=== PATIENT | female | born 1940 | race Caucasian/White ===

== ENCOUNTER 2016-07-03 15:54 | Inpatient (IN) ==
[2016-07-03 17:49] LABS: MANUAL DIFF NEEDED? NO
--- NOTE | 2016-07-03 17:57 | Diag Imaging Result Document ---
PROCEDURE NAME: CHEST-2 VIEWS - 07/03/2016 FRONTAL AND LATERAL CHEST, TWO VIEWS: COMPARISON: 11/26/2014. FINDINGS: The lungs are well expanded. The heart is not enlarged. The vessels are not distended. No pneumonia. No pleural effusions. There are bilateral breast implants. No free air beneath the diaphragm. IMPRESSION: No acute abnormality.
[2016-07-03 17:58] LABS: BASO% 0.1 % (0.0-0.8); EOS# 0.07 X1000 (0.0-0.7); EOS% 0.9 % (0.0-10.0); HEMATOCRIT 36.1 % (37.0-47.0); HEMOGLOBIN 12.5 g/dL (12.0-16.0); IMM GRAN# 0.02 X1000 (0.0-0.04); IMM GRAN% 0.3 % (0.0-0.5); LYMPH# 1.02 X1000 (1.2-3.4); LYMPH% 13.8 % (20.5-51.1); MCH 33.1 PG (27-31); MCHC 34.6 g/dL (33-37); MCV 95.5 FL (81-99); MONO% 10.8 % (1.7-9.3); NEUT% 74.1 % (42.2-75.2); PLT 208 X1000 (130-400); RBC 3.78 XMIL (4.2-5.4)
[2016-07-03 18:02] LABS: INR 0.94; PROTIME 9.8 Seconds (9.2-11.7); PTT 25.1 Seconds (22.0-36.0)
[2016-07-03] MEDS ORDERED: NITROGLYCERIN SL ONE (18:43)
[2016-07-03] MEDS ORDERED: ASPIRIN PO ONE (18:44)
[2016-07-03] MEDS ORDERED: NS 1,000 ML IV ONE (18:45)
[2016-07-03 18:46] LABS: ALBUMIN 4.4 g/dL (3.5-5.0); CALCIUM 10.4 mg/dL (8.8-10.2); MAGNESIUM 2.2 mg/dL (1.5-2.7); POTASSIUM 3.4 mmol/L (3.5-5.1); TOTAL BILIRUBIN 0.24 mg/dL (0.20-1.00); TOTAL PROTEIN 7.5 g/dL (6.3-8.3)
--- NOTE | 2016-07-03 18:46 | PROVIDER DOCUMENTATION ---
HPI-Chest Pain - General Chief Complaint: Chest Pain Stated Complaint: cp Time Seen by Provider: 07/03/16 18:30 Source: patient Allergies/Adverse Reactions: Patient Allergies Allergy/AdvReac Type Severity Reaction Status Date / Time morphine Allergy Severe "MAKES ME Verified 07/03/16 18:40 CRAZY" Sulfa (Sulfonamide AdvReac Severe VOMIT AND Verified 07/03/16 18:40 Antibiotics) DIARRHEA Home Medications: Home Medication List Medication Instructions Recorded Confirmed Last Taken Type Clonidine [Catapres] 0.2 mg PO BID 07/03/16 07/03/16 07/03/16 History Lorazepam 0.5 mg PO DAILY 07/03/16 07/03/16 07/03/16 History Metoprolol [Lopressor] 50 mg PO BID 07/03/16 07/03/16 07/03/16 History PRAVAstatin [Pravachol] 80 mg PO DAILY 07/03/16 07/03/16 07/03/16 History Spironolactone 25 mg PO BID 07/03/16 07/03/16 07/03/16 History Losartan [Cozaar] 100 mg PO DAILY #30 tablet 07/06/16 Unknown Rx Omeprazole [Prilosec] 40 mg PO BID #60 capsule. 07/06/16 Unknown Rx Sucralfate [Carafate Liquid] 1 gm PO Q6HR #56 udc 07/06/16 Unknown Rx - History of Present Illness-CP Nature of Presenting Problem: 76 yof c/o epigastric pain radiating to her shoulder blades. Location: reports: epigastric Chest Pain Radiation: reports: back Quality of Pain: reports: aching, pressure Severity in ED: moderate Onset/Duration: 4-6 hours ago Timing: still present Context/Activities at Onset: reports: none Modifying Factors: improves with: nothing Nitro Today/Relief: no nitro taken today Aspirin Treatment Today: provided by ED Prior Chest Pain/Cardiac Workup: reports: no prior chest pain Similar Symptoms Previously?: No Recently Seen Here or By Another Healthcare Provider: No Review of Systems - Adult - REVIEW OF SYSTEMS - ADULT Constitutional: reports: see HPI Eyes: reports: no symptoms reported Ears, Nose, Mouth & Throat: reports: no symptoms reported Cardiovascular: reports: see HPI, chest pain Respiratory: reports: no symptoms reported Gastrointestinal: reports: no symptoms reported Genitourinary: reports: no symptoms reported Musculoskeletal: reports: no symptoms reported Integumentary: reports: no symptoms reported Neurological: reports: no symptoms reported All Other Systems: Reviewed and Negative Past History - Adult - PAST MEDICAL HISTORY-ADULT Review of Records: reports: Old Records Reviewed, Nursing Assessment Review, Medications Reviewed, Social history reviewed & non-contributory. 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) Other Conditions: reports: MRSA - PRIOR SURGERIES/PROCEDURES Surgical/Procedure History: reports: colonoscopy, indwelling device, bowel surgery, breast - IMMUNIZATION STATUS Childhood Immunizations: See Nurse Assessment Flu Vaccine: See Nurse Assessment Physical Exam-General - PHYSICAL EXAM-ADULT Initial Vital Signs Reviewed: Yes - CONSTITUTIONAL General Appearance: appears well, alert, no apparent distress - EYES Eyes: PERRL/EOMI, pink conjunctivae - HEAD, EARS, NOSE, MOUTH & THROAT HENMT: normocephalic/atraumatic, moist mucous membranes, normal ENT inspection - NECK Neck: non-tender, full range of motion, supple - RESPIRATORY Respiratory: chest non-tender, lungs clear, normal breath sounds, no pleuratic chest pain, no respiratory distress - CARDIOVASCULAR Cardiovascular: normal peripheral pulses, regular rate, rhythm, no edema, no gallop, no JVD, no murmur - GASTROINTESTINAL (ABDOMEN) Abdominal Exam: normal bowel sounds, non tender, soft, no organomegaly, no pulsatile mass - LYMPHATIC Lymphatic: no adenopathy - MUSCULOSKELETAL Back Exam: normal inspection, no CVA tenderness, no vertebral tenderness Extremity: normal range of motion, non-tender, normal gait, normal inspection, no pedal edema, no calf tenderness, normal capillary refill, pelvis stable - SKIN Integumentary: normal color, normal turgor, warm/dry - NEUROLOGIC Neurologic: grossly normal - PSYCHIATRIC Psych/Mental Status: oriented x 3 Progress - PLAN OF CARE/RESULTS Progress/Plan/Lab Results: Orders Category Date Time Status Admit - [facility] Routine AdmDCTranf 07/03/16 22:32 Ordered Cardiac Monitoring DIRECTED Care 07/03/16 17:00 Completed Notify MD if DIRECTED Care 07/03/16 22:32 Active Nursing- MD Consult Request ROUTINE Care 07/03/16 22:32 Completed Nursing- MD Consult Request ROUTINE Care 07/03/16 22:32 Completed Saline Loc DIRECTED Care 07/03/16 22:32 Active Saline Loc NOW Care 07/03/16 17:00 Completed Vital Signs Order Q 4-HR ASSESS Care 07/03/16 22:32 Completed Physician/Provider Consults Routine Cons 07/03/16 22:32 Ordered Physician/Provider Consults Routine Cons 07/03/16 22:32 Ordered Heart Healthy Diet Diet 07/03/16 21:45 Completed NPO Diet 07/04/16 00:01 Completed CHEST-2 VIEWS [RAD] Stat Exams 07/03/16 17:00 Completed BASIC METABOLIC PANEL [CHEM] Q6H Lab 07/03/16 23:00 Completed BASIC METABOLIC PANEL [CHEM] Q6H Lab 07/04/16 05:15 Completed BASIC METABOLIC PANEL [CHEM] Q6H Lab 07/04/16 10:05 Completed C DIFF TOXIN [STOOL] Stat Lab 07/04/16 03:35 Completed CBC WITH ELECTRONIC DIFF [HEME] Stat Lab 07/03/16 17:25 Completed CK PROFILE [SP CHEM] Stat Lab 07/03/16 17:25 Completed CK PROFILE [SP CHEM] Stat Lab 07/03/16 20:30 Completed COMPREHENSIVE METABOLIC PANEL [CHEM] Stat Lab 07/03/16 17:25 Completed D-DIMER [CHEM] Stat Lab 07/03/16 17:25 Completed ELECTROLYTES STOOL [PADILLA] Stat Lab 07/04/16 03:35 Completed LACTOFERRIN STOOL [PADILLA] Stat Lab 07/04/16 03:35 Completed LIPID PROFILE W/CALC LDL [LIPIDS] Routine Lab 07/04/16 05:15 Completed MAGNESIUM [CHEM] Stat Lab 07/03/16 17:25 Completed MAGNESIUM [CHEM] Stat Lab 07/03/16 23:00 Completed PRO B-NATRIURETIC PEPTIDE Stat Lab 07/03/16 17:25 Completed PROTIME WITH INR [COAG] Stat Lab 07/03/16 17:25 Completed PTT [COAG] Stat Lab 07/03/16 17:25 Completed TROPONIN T Q6H Lab 07/03/16 23:00 Completed TROPONIN T Q6H Lab 07/04/16 05:15 Completed TROPONIN T Stat Lab 07/03/16 17:25 Completed TROPONIN T Stat Lab 07/03/16 20:30 Completed TSH Stat Lab 07/03/16 20:30 Completed UR OSMOLALITY [CHEM] Stat Lab 07/03/16 21:30 Completed UR SODIUM [URCHEM] Stat Lab 07/03/16 21:30 Completed URIC ACID [CHEM] Stat Lab 07/03/16 20:30 Completed WBC STOOL [STOOL] Stat Lab 07/04/16 03:35 Completed 0.9% Sodium Chloride Inj [Ns] 1,000 ml Med 07/03/16 18:45 Discontinued IV 100 mls/hr Acetaminophen [Tylenol] Med 07/03/16 22:32 Discontinued 650 mg PO Q6H PRN PRN Aspirin Med 07/04/16 09:00 Discontinued 325 mg PO DAILY Aspirin Med 07/03/16 18:44 Discontinued 325 mg PO NOW ONE Cholestyramine/Aspartame [Questran Light] Med 07/04/16 09:00 Discontinued 4 gm PO BID Clonidine [Catapres] Med 07/03/16 22:32 Discontinued 0.2 mg PO BID Enoxaparin [Lovenox] Med 07/03/16 22:32 Discontinued 40 mg SUBQ Q24H Lorazepam [Ativan] Med 07/04/16 09:00 Discontinued 0.5 mg PO DAILY Metoprolol [Lopressor] Med 07/03/16 22:32 Discontinued 50 mg PO BID Nitroglycerin Sl [Nitroglycerin] Med 07/03/16 18:43 Discontinued 0.4 mg SL NOW ONE Ns + KCl 20 Meq 1,000 ml Med 07/03/16 22:32 Discontinued IV 125 mls/hr Omeprazole [Prilosec] Med 07/04/16 07:00 Discontinued 20 mg PO DAILY@0700 Ondansetron [Zofran] Med 07/03/16 22:32 Discontinued 4 mg IV Q4H PRN PRN PRAVAstatin [Pravachol] Med 07/04/16 09:00 Discontinued 80 mg PO DAILY Oxygen Device Routine Oth 07/03/16 22:32 Completed EKG [EKG] Routine Ther 07/03/16 22:32 Completed Echo Spec/Color Dop W/O Contra Routine Ther 07/03/16 22:32 Completed Transfer/Admit Order [TRANSFER] Routine Transfer 07/03/16 20:36 Completed Result Diagrams: 07/06/16 05:33 07/06/16 05:33 Departure - Departure Time of Disposition Decision: 21:30 DIAGNOSIS: Chest pain Qualifiers: Chest pain type: unspecified Qualified Code(s): R07.9 - Chest pain, unspecified Disposition: ADMITTED INPATIENT 09 Certified Medical Emergency: Emergent Condition: Stable - Critical Care Note This patient required my direct & personal management of CC.: No Attestation - Physician/ BARB Attestation Patient care was provided by Advanced Practice Provider:: Yes Advanced Practice Provider:: Erich Francis Advanced Practice Provider documentation review:: The Mid-level provider documentation, treatment plan and medical decision making was reviewed by the physician who agrees with all treatment and medical decision making by the MLP.
[2016-07-03] MEDS ORDERED: NS + KCL 20 MEQ 1,000 ML IV ONE (22:32)
[2016-07-03] MEDS ORDERED: ZOFRAN IV PRN (22:32)
[2016-07-03] MEDS ORDERED: LOVENOX SUBQ SCH (22:32)
--- NOTE | 2016-07-03 23:15 | HISTORY AND PHYSICAL ---
REASON FOR ADMISSION: Chest pain for 2 days. HISTORY OF PRESENT ILLNESS: Ms. Sujata Pedersen is a 74-year-old lady with a past medical history of hypertension, status post colon resection following iatrogenic perforation of her colon during a colonoscopy. She comes in today complaining of left precordial pain, which is pleuritic in nature. She admits to having some slightly increased shortness of breath over the last 2 days, but denies any orthopnea or PND. No leg swelling. No extremity redness or pain. She says her exercise tolerance is diminished over the last 2 weeks, from being able to walk a block before she gets a little short of breath, to half a block. She denies any fever or chills. She denies any postural lightheadedness or any neurological complaints. The patient states that the pleuritic chest pain does not radiate anywhere, and she denies any palpitations or dizziness. Patient also complains of a 1 month history of increasing nonbloody diarrhea. She states that she has to empty her colostomy bag 10-12 times a day. Admits to having some nausea, but no vomiting per se. No abdominal pain associated with this. No changes in her medications recently. She has also noticed that over the last 2 days her urine output has diminished. No polyuria or polydipsia. No blood loss. She states that the diarrhea does not wake her up at night, and gets worse with eating. ALLERGIES: Morphine and sulfa drugs. HOME MEDICATIONS: Clonidine 0.2 mg b.i.d., lorazepam 0.5 mg daily, losartan 10/12.5 mg daily, metoprolol 50 mg b.i.d., pravastatin 80 mg daily, spironolactone 25 mg b.i.d. REVIEW OF SYSTEMS: Twelve system review is negative. Positive findings per HPI. The patient denies any weight loss. SOCIAL HISTORY: Smokes about a half pack a day. Has no immediate plans to quit at this time. Drinks about 3 beers a day. No immediate plans to quit. She recently got within the last year. Denies any drug abuse. Lives with her current . FAMILY HISTORY: Positive for heart disease in both parents, ovarian cancer in her mother, but no diabetes in first-degree relatives. PAST SURGICAL HISTORY: Had about 6 abdominal surgeries related to her colon resection, with a colostomy. She has also had a breast augmentation. LABORATORY WORK: White count 7000, hemoglobin and hematocrit 12 and 36, platelets 208,000, with normal differential. Sodium 120, potassium 3.4, anion gap is 12, bicarbonate 29, BUN is 16, creatinine 1.5, glucose 109. Uric acid is 5. Calcium 10.4. TSH 0.74. Troponin x2 is negative. PT, PTT, and D-dimer are normal. Urine osmolarity is 172. Random sodium is 39. Chest x-ray just shows no infiltrate noted. EKG shows normal sinus rhythm, no ST-wave changes of note. PHYSICAL EXAMINATION: GENERAL: Elderly woman, who appears actually younger than her stated age. She is alert and oriented to person and time. Normal mood and affect. HEAD: Normocephalic, atraumatic. EYES: PERRLA, EOMI. She is anicteric, but pale. VITAL SIGNS: Blood pressure 121/77. Heart rate 90. Respirations 17. Temperature is 97.8 degrees. She is 98% on room air. ENT AND OROPHARYNX: Just shows slightly dry oral mucosa. No oropharyngeal exudates. No central cyanosis. NECK: Supple. No JVD or carotid bruit. No thyromegaly. CHEST: Clear to auscultation, with good air entry in both lung moser. CARDIOVASCULAR: First and second heart sounds heard. No gallops, murmurs, or rubs. Rhythm is regular. ABDOMEN: Patient has a very large old midline surgical scar. She has a colostomy bag in the right lower quadrant area. She has left mild left upper quadrant epigastric tenderness, but no rebound or guarding. No mass or organomegaly. Bowel sounds are hyperactive. EXTREMITIES: No edema, clubbing, or cyanosis. Good pulses distally in all extremities, with good volume, and they are symmetrical. NEUROLOGIC: No focal deficits. SKIN: Intact, but with decreased turgor. MUSCULAR: Exam is grossly normal. ASSESSMENT: 1. Hypotonic-hypovolemic hyponatremia, probably secondary to medications, i.e. hydrochlorothiazide, Aldactone, and gastrointestinal losses from colostomy. 2. Chest pain, which seems atypical. 3. Hypertension. 4. Dehydration. 5. Chronic diarrhea. 6. Probable reflux disease. PLAN: At this time, based on patient's urine indices, it appears that the patient is somewhat dehydrated, despite the spot urine of 39. Thus, a higher than expected level could be attributed to the fact that she is taking hydrochlorothiazide and Aldactone, which will increase the amount of sodium in the urine. Clinically, she does appear dehydrated from her gastrointestinal losses and diuretic use. I would also attribute her hyponatremia to hydrochlorothiazide, in which case her hydrochlorothiazide and Aldactone both need to be discontinued, and an alternative blood pressure medication started in its place. The patient's gastrointestinal losses will be corrected with normal saline and BMP will be checked q.6 hours to avoid overcorrection of the patient's sodium, so as to avoid ODS. This patient in particular, being an elderly woman on hydrochlorothiazide, is pretty much at a higher risk than most people of developing ODS. Also, correct other electrolyte derangements. We will consult Cardiology to address her chest pain, which I think is atypical. However, she has risk factors for this. She has never had any cardiac workup, but she has a strong family history and she smokes. This would be prudent to go ahead and at least evaluate her. Because of her hyponatremia, I have only kept her NPO, with the hope that her sodium is at a reasonable level, so that the associate counsel can decide to proceed with a cardiac workup. DVT prophylaxis will be with Lovenox, and a lipid panel will be ordered. cc: MD Valerie Thompson MD
[2016-07-03] MEDS: CATAPRES PO SCH (23:37)
[2016-07-03] MEDS: LOPRESSOR PO SCH (23:37)
[2016-07-03] MEDS: TYLENOL PO PRN (23:40)
[2016-07-03 23:45] LABS: CALCIUM 9.9 mg/dL (8.8-10.2); POTASSIUM 3.8 mmol/L (3.5-5.1)
--- NOTE | 2016-07-04 05:25 | EKG Report ---
Test Performed on : 07/03/2016 11:56:11 PM Test Reason : CP Blood Pressure : / mmHG Vent. Rate : 059 BPM Atrial Rate : 059 BPM P-R Int : 184 ms QRS Dur : 078 ms QT Int : 428 ms P-R-T Axes : 058 047 060 degrees QTc Int : 423 ms Sinus bradycardia. Cannot rule out Anterior infarct (cited on or before 03-JUL-2016) Abnormal ECG When compared with ECG of 03-JUL-2016 20:31, No significant change was found Confirmed by Yvonne SOTO, Bob Cortes ([id number]) on 07/04/2016 9:10:25 AM
--- NOTE | 2016-07-04 05:41 | EKG Report ---
Test Performed on : 07/03/2016 8:31:47 PM Test Reason : cp Blood Pressure : / mmHG Vent. Rate : 083 BPM Atrial Rate : 083 BPM P-R Int : 180 ms QRS Dur : 080 ms QT Int : 398 ms P-R-T Axes : 059 032 056 degrees QTc Int : 467 ms Normal sinus rhythm. Cannot rule out Anterior infarct (cited on or before 03-JUL-2016) Abnormal ECG When compared with ECG of 03-JUL-2016 16:36, (Unconfirmed) No significant change was found Unconfirmed Result
--- NOTE | 2016-07-04 05:41 | EKG Report ---
Test Performed on : 07/03/2016 4:36:05 PM Test Reason : cp Blood Pressure : / mmHG Vent. Rate : 087 BPM Atrial Rate : 088 BPM P-R Int : 166 ms QRS Dur : 080 ms QT Int : 358 ms P-R-T Axes : 063 040 054 degrees QTc Int : 430 ms Normal sinus rhythm. Cannot rule out Anterior infarct , age undetermined Abnormal ECG When compared with ECG of 02-AUG-2014 20:19, No significant change was found Unconfirmed Result
[2016-07-04 06:16] LABS: HDL 55 mg/dL (45-65); LDL 87 mg/dL; TRIGLYCERIDES 138 mg/dL (35-135); VLDL 28 mg/dL
[2016-07-04 06:18] LABS: CALCIUM 8.9 mg/dL (8.8-10.2); POTASSIUM 4.4 mmol/L (3.5-5.1)
[2016-07-04] MEDS ORDERED: PRILOSEC PO SCH (07:00)
[2016-07-04] MEDS ORDERED: ASPIRIN PO SCH (09:00)
[2016-07-04] MEDS: PRAVACHOL PO SCH (09:01)
[2016-07-04] MEDS: LOPRESSOR PO SCH ×2 (09:02→20:59)
[2016-07-04] MEDS: CATAPRES PO SCH ×2 (09:07→20:59)
[2016-07-04] MEDS ORDERED: SAMSCA PO ONE (10:07)
--- NOTE | 2016-07-04 10:33 | CONSULTATION ---
DATE OF CONSULTATION: 07/04/2016 REASON FOR CONSULTATION: Cardiology consulted for chest pain. HISTORY OF PRESENT ILLNESS: Ms Sujata Pedersen is a 74-year-old, lady with history of hypertension, multiple abdominal surgeries in the past, colonic resection, iatrogenic perforation during colonoscopy in the past, who comes with complaints of epigastric discomfort under her left breast. She also says that she has difficulty in swallowing as food gets stuck in her epigastric region. She complains also of having shortness of breath. There are no palpitations. There is no dizziness. There is no syncope. The patient had a month of non bloody diarrhea as well. She has to empty her colostomy bag more frequently. PAST MEDICAL HISTORY: 1. Hypertension. 2. Colonic perforation. 3. Colostomy. 4. History of pulmonary embolus. 5. Esophageal spasm. 6. Breast augmentation. 7. No previous cardiac history. ALLERGIES: Allergic to morphine and sulfonamides. HOME MEDICATIONS: 1. Clonidine 0.2 b.i.d. 2. Lorazepam 0.5. 3. Losartan 12/06.5. 4. Metoprolol 50 b.i.d. 5. Pravastatin 80. 6. Spironolactone 25 b.i.d. REVIEW OF SYSTEMS: She smokes about a half a pack of cigarettes a day. There is no history of alcohol abuse other than occasionally. She drinks about 3 beers a day and not more than that. PHYSICAL EXAMINATION: Vital Signs: Blood pressure was 106/42. Cardiovascular System: Normal jugular venous pressure. There is no thyromegaly. No carotid bruit. First and second heart sounds were heard. Abdomen: Soft. There was epigastric tenderness. There was no guarding or rigidity. Bowel sounds were heard. Central nervous system: Alert, was moving all 4 extremities. Extremities: Examination of extremities revealed no pedal edema. HEENT: Atraumatic, normocephalic. Pupils were equal and reacting to light. LABORATORY EXAMINATION: Sodium 122, potassium 4.4, BUN 18, creatinine 1.7, magnesium 2.2. Cardiac enzymes negative. IMAGING: Electrocardiogram revealed sinus bradycardia. There were no acute ST-T changes to suggest ischemia. ASSESSMENT AND PLAN: 1. Ms. Sujata Pedersen is a 76-year-old, lady with history of pulmonary embolism in the past, hypertension, multiple colonic surgeries and perforation. She has a colostomy. She has noticed increasing diarrhea and has epigastric discomfort and left inframammary discomfort as well. From a cardiac standpoint, I suspect will get an echocardiogram. I suspect this is related to her esophageal or gastrointestinal issues. She is going to have an upper gastrointestinal endoscopy today. 2. She is hyponatremic probably secondary to diarrhea. Regardless, she is on losartan/hydrochlorothiazide. We will discontinue the hydrochlorothiazide. Her sodium was 122. We will institute treatment with Samsca. 3. She also has renal insufficiency. Baseline creatinine 1-1.2; today it was 1.7. That could be secondary to dehydration as well. 4. Hypertension. Continue with other medications. 5. We will await results of her endoscopy, and we will check lab work again in the morning. Thank you for the consult. cc: Nahid Odonnell MD
[2016-07-04] MEDS: ATIVAN PO SCH (10:43)
[2016-07-04] MEDS: QUESTRAN LIGHT PO SCH ×2 (10:47→20:59)
[2016-07-04 11:17] LABS: POTASSIUM 4.7 mmol/L (3.5-5.1)
[2016-07-04] MEDS ORDERED: TUMS PO PRN (15:43)
[2016-07-04] MEDS ORDERED: TUMS PO ONE (15:43)
[2016-07-04] MEDS: TYLENOL PO PRN (15:58)
[2016-07-04 16:48] LABS: CALCIUM 9.3 mg/dL (8.8-10.2); POTASSIUM 4.4 mmol/L (3.5-5.1)
[2016-07-04] MEDS ORDERED: DIPRIVAN 1% ONE (19:28)
[2016-07-04] MEDS ORDERED: FENTANYL ONE (19:28)
[2016-07-04] MEDS ORDERED: SODIUM CHLORIDE 0.9% INJ PRN (19:47)
[2016-07-04] MEDS ORDERED: PHENERGAN IV PRN (19:47)
[2016-07-04] MEDS: NS 1,000 ML IV SCH (19:55)
[2016-07-04 20:20] LABS: SPECIMEN GASTRIC FLUID
--- NOTE | 2016-07-04 20:24 | ECHO REPORT ---
ORDER DATE: 07/03/2016 INTERPRETING PHYSICIAN: Dr. Pina REQUESTING PHYSICIAN: CLINICAL INDICATIONS: A 76-year-old female with chest pain. M-MODE MEASUREMENTS: Right ventricle: 2.6 cm. Left ventricle end diastole: 4.2 cm. Left ventricle end systole: 2.5 cm. Posterior wall: 0.9 cm. Interventricular septum: 0.9 cm. Left atrium: 2.7 cm. Aortic root: 3.5 cm. SUMMARY OF 2-DIMENSIONAL IMAGING: The left ventricular function is normal. Ejection fraction 68%. No wall motion abnormality is noted. The right ventricle is normal. The atria appear to be normal. The aortic valve looks normal. Color flow mapping unremarkable. The mitral valve looks normal. Color flow mapping indicates a mild degree of regurgitation. Pulse wave Doppler of mitral inflow is normal. Tissue Doppler of septal and lateral mitral annulus averages 8 cm per second. Pulmonary venous flow is normal. There is no diastolic dysfunction. The pulmonic valve looks normal. Color flow mapping unremarkable. The tricuspid valve looks normal. Color flow mapping indicates a mild degree of regurgitation. There is no pericardial effusion, masses or thrombus. The aortic valve has 3 cusps. They open normally. Color flow mapping unremarkable. IMPRESSION: In summary, this echocardiographic study is quite unremarkable. cc: MD Ricardo Jones MD
--- NOTE | 2016-07-04 20:32 | PROGRESS NOTE ---
DATE: 07/04/2016 SUBJECTIVE: Patient has no focal complaints. Seen postop after her endoscopy. Discussed the case briefly with Dr. Ellington. OBJECTIVE: Vital signs: Blood pressure 117/59, heart rate 71, respiratory 16, temperature 97.4 degrees. Cardiovascular: Regular rate and rhythm. Pulmonary: Bilateral breath sounds. Clear to auscultation. GI: Soft, nontender, nondistended. Bowel sounds are positive. LABORATORY DATA: Hemoglobin and hematocrit 12 and 36. White count of 7. Sodium is up to 126. Creatinine of 1.5. PROBLEM LIST: 1. Hyponatremia. Possible syndrome of inappropriate antidiuretic hormone secretion. Her urine electrolytes would suggest not though. Her sodium is 172. She has been dosed with Samsca. We will continue to follow. I am going to repeat her levels tomorrow and follow. I did not want to overcorrect her, but we will see her level this evening and then go from there. Again, I think she is probably sodium depleted. Reset Osmostat. I am not sure if this is syndrome of inappropriate antidiuretic hormone secretion, so we will follow on her levels. I am concerned a little bit about over-correction. 2. In any case, chest pain may be related to her gastrointestinal issues. Apparently she has a duodenal ulcer, linear erosions, et cetera. She is on aspirin. She is not on any nonsteroidal antiinflammatory drugs, although she certainly could be taking over the counter medications. In any case, plan is to monitor with proton pump inhibitor, which I am going to initiate and follow closely. 3. Chest pain. Pursuing stress test and we will follow closely. Cardiac issues are stable. I would consider maybe holding aspirin right now just because of her gastrointestinal issues, but we will continue to follow. DISPOSITION: Pending multiple issue resolution. cc: Reggie Reynoso MD
[2016-07-04 20:39] LABS: CALCIUM 9.6 mg/dL (8.8-10.2); POTASSIUM 4.6 mmol/L (3.5-5.1)
[2016-07-04] MEDS: CARAFATE LIQUID PO SCH (20:59)
[2016-07-04] MEDS: PROTONIX IV SCH (20:59)
[2016-07-04] MEDS ORDERED: DIFLUCAN 200 MG/NS 200 MG/100 ML IVPB IV ONE (21:00)
[2016-07-04] MEDS: SODIUM CHLORIDE 0.9% INJ SCH (21:00)
--- NOTE | 2016-07-05 00:31 | CONSULTATION ---
DATE OF CONSULTATION: 07/04/2016 REFERRING PHYSICIAN: Reggie Reynoso M.D. INDICATION FOR CONSULTATION: 1. Chest pain. 2. Diarrhea. 3. GERD. 4. Dysphagia. HISTORY OF PRESENT ILLNESS: The patient is a 74-year-old white female who is admitted for evaluation of 2 days of chest pain. She has a longstanding history of GERD. She has required 3 or 4 esophageal dilations in the past. She notes that recently, she has had progressive dysphagia that is intermittent, but occurs at least once a day. She also reports nonbloody diarrhea that is postprandial. She describes epigastric pain and right upper quadrant pain, as well as the chest pain for which she is being admitted. She notes daily heartburn and indigestion. She describes the sensation of having a gas bubble that intermittently gets stuck in her chest. We are asked to perform endoscopic evaluation. PAST MEDICAL HISTORY: 1. GERD. 2. Hypertension. 3. Hyperlipidemia. PAST SURGICAL HISTORY: 1. Colostomy, secondary to iatrogenic colon perforation that was performed for evaluation of left lower quadrant pain. 2. Six abdominal surgeries regarding her colostomy and bowel perforation. 3. Breast augmentation. FAMILY HISTORY: Remarkable for ovarian cancer in her mother. She notes that both her mother and her father were diagnosed with gastric cancer at different times. Her mother was diagnosed in her late 60s, and her father was diagnosed in his early 70s. SOCIAL HISTORY: Remarkable in that she smokes a half a pack per day for the last 10 years, and does not plan to quit. She drinks 3 beers on a daily basis for the last 7 years , and does not plan to quit. HOME MEDICATIONS: 1. Spironolactone. 2. Pravachol. 3. Lopressor. 4. Losartan/hydrochlorothiazide. 5. Lorazepam. 6. Catapres. REVIEW OF SYSTEMS: Remarkable for the symptoms as noted above. PHYSICAL EXAMINATION: Vital Signs: Blood pressure is 133/70, pulse 65, respirations 13, temperature of 98.2 degrees. HEENT: Negative. Her oropharyngeal mucosal membranes are moist. Her sclerae are anicteric and her conjunctivae are normal. Cardiovascular: She has regular rate and rhythm, with no murmurs, gallops, or rubs. Pulmonary: Lungs are clear to auscultation, with normal expiratory effort. Abdominal: Reveals normoactive bowel sounds. The abdomen is soft, with epigastric tenderness and right upper quadrant tenderness. There is no rebound or guarding. She has a well-healed ostomy in the right lower quadrant. Extremities: Bilaterally are negative for cyanosis, clubbing, or edema. OBJECTIVE DATA: Remarkable for hemoglobin of 12.5, with hematocrit of 36.1, and a white count of 7.40, and 208,000 platelets on 07/03/2016. On 07/04/2016, her sodium is 126, potassium 4.4, chloride 91, CO2 22, BUN 16, creatinine 1.5, with a glucose of 83. Her calcium is 9.3. Her triglycerides are 138. IMPRESSION: 1. Atypical chest pain. 2. History of gastroesophageal reflux disease, with daily heartburn. 3. Dysphagia. 4. Postprandial diarrhea. RECOMMENDATION: 1. We will plan to perform an EGD with possible biopsy versus dilation. 2. Begin Protonix 40 mg IV q.12 hours. 3. Additional recommendations to follow based on her endoscopic course. cc: MD Valerie Irizarry MD Alexis R. Penot, MD [facility] HOSPITALManuel
--- NOTE | 2016-07-05 00:45 | OPERATIVE NOTE ---
PROCEDURE DATE: 07/04/2016 REFERRING PHYSICIAN: Reggie Reynoso M.D. PRIMARY CARE PHYSICIAN: Valerie Chong M.D. INDICATION FOR PROCEDURE: 1. Chest pain. 2. Diarrhea. 3. Dysphagia. 4. GERD, with heartburn. 5. Anemia. 6. Epigastric pain. PROCEDURE PERFORMED: Esophagogastroduodenoscopy with biopsy. CONSENT: Informed consent was obtained from the patient prior to the procedure. The risks, benefits, and alternatives were discussed. MEDICATION: The patient received monitored anesthesia care. PERFORMING PHYSICIAN: Judy Ellington M.D. ASSISTANTS: 1. [facility] 2. Estefani Kerr RN. 3. Chelsey Blanca CRNA. 4. Jose Jules M.D. (anesthesia). COMPLICATIONS: There were no complications. ESTIMATED BLOOD LOSS: 2-3 mL. SPECIMENS REMOVED: 1. Duodenal biopsy. 2. Gastric pH. 3. Gastric biopsy. FINDINGS: After sedation was achieved, the upper endoscope was inserted to the third portion of the duodenum. The hypopharynx appeared endoscopically normal. Along the length of the entire tubular esophagus, there were white plaques and mucosal changes consistent with Vilma esophagitis. There were no obvious esophageal varices. At the GE junction, there was a Schatzki's ring with mild restriction. With moderate pressure, I was able to insert the scope into the hiatal hernia sac. There was grade A to B erosive esophagitis at the GE junction. The GE junction was present at 45 cm from the incisors. There was a hiatal hernia that spanned from 45-47 cm. In the gastric lumen, there was severe erosive gastritis. There was mild pooling of fluid in the fundus. The fluid was aspirated for gastric pH. There were more than 10 superficial serpiginous ulcers in the body and the antrum. Biopsies were taken. On retroflexed view, there were multiple scattered erosions in the fundus, as well as a few superficial ulcers. On forward view, the pylorus was inflamed, with mild restriction. In the duodenal bulb, there was a greater than 10 mm crater duodenal bulb ulcer with raised edges in D1. In the 2nd and 3rd portion of the duodenum, the mucosa was flat, with multiple superficial serpiginous erosions, as well as a ring- like ulcer in the 2nd portion of the duodenum. These changes extended beyond the third portion of the duodenum. Biopsies were taken from the duodenal mucosa, as well as the gastric mucosa. After the exam was complete, the lumen was decompressed and the scope was removed without incident. IMPRESSION: 1. Esophageal candidiasis. 2. Schatzki's ring with mild restriction. 3. Grade A to B erosive esophagitis. 4. Hiatal hernia. 5. Severe erosive gastritis. 6. Multiple gastric ulcers. 7. Mild pyloric inflammation with restriction. 8. Greater than 10 mm duodenal ulcer in the duodenal bulb. 9. Severe duodenitis in the 2nd and 3rd portion of the duodenum. 10. Shelf-like ulcer in the 2nd portion of the duodenum. RECOMMENDATION: 1. Will check an H. pylori stool antigen. In addition, I will check a gastric pH. Please note, she has a stool QuantiFERON already pending to assess for inflammatory bowel disease. 2. Continue Protonix 40 mg IV q.12 hours. 3. Please note that she is also receiving omeprazole 20 mg p.o. 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 I will discontinue the oral omeprazole. 4. Add Carafate suspension 1 g p.o. 4 times a day for 12 weeks. 5. Begin Diflucan 200 mg today, followed by 100 mg daily for 20 days. I will initiate therapy with IV Diflucan. She may be switched to oral Diflucan at discharge. 6. Await endoscopic biopsy results. 7. Because of the multiple ulcers, as well as the large duodenal ulcer with cratering edges, I recommend a repeat EGD, with possible biopsy and/or dilation in 12 weeks. 8. We will monitor the patient's serial hemoglobin and hematocrit in the hospital. 9. She should return to clinic in 4 weeks to assess interval progress. 10. I anticipate that if her blood count remains stable overnight, it would be reasonable to consider outpatient management after 24-36 hours. cc: MD Reggie Irizarry MD Bhavna Gowda, MD MTDD
[2016-07-05] MEDS: CARAFATE LIQUID PO SCH ×4 (05:47→20:35)
--- NOTE | 2016-07-05 06:23 | EKG Report ---
Test Performed on : 07/05/2016 05:44:26 AM Test Reason : chest pain Blood Pressure : / mmHG Vent. Rate : 047 BPM Atrial Rate : 047 BPM P-R Int : 182 ms QRS Dur : 072 ms QT Int : 438 ms P-R-T Axes : 065 056 059 degrees QTc Int : 387 ms Sinus bradycardia. Otherwise normal ECG When compared with ECG of 03-JUL-2016 23:56, No significant change was found Confirmed by Bob Russell MD ([id number]) on 07/06/2016 7:15:00 AM
[2016-07-05 06:29] LABS: HEMATOCRIT 30.7 % (37.0-47.0); HEMOGLOBIN 10.2 g/dL (12.0-16.0); MCH 33.6 PG (27-31); MCHC 33.2 g/dL (33-37); MPV 11.1 FL (7.4-10.4); RBC 3.04 XMIL (4.2-5.4)
[2016-07-05 06:38] LABS: CALCIUM 9.5 mg/dL (8.8-10.2); POTASSIUM 4.7 mmol/L (3.5-5.1)
[2016-07-05] MEDS ORDERED: LR 1,000 ML ONE (08:18)
[2016-07-05] MEDS ORDERED: ANESTHESIA PB SET 88 IN 5742 ONE (08:18)
[2016-07-05] MEDS ORDERED: XYLOCAINE-MPF 2% ONE (08:18)
[2016-07-05] MEDS ORDERED: LEXISCAN ONE (08:51)
[2016-07-05] MEDS ORDERED: ASPIRIN EC PO SCH (09:00)
[2016-07-05] MEDS: PRAVACHOL PO SCH (12:34)
[2016-07-05] MEDS: SODIUM CHLORIDE 0.9% INJ SCH ×2 (12:34→20:35)
[2016-07-05] MEDS: PROTONIX IV SCH ×2 (12:34→20:35)
[2016-07-05] MEDS: QUESTRAN LIGHT PO SCH ×2 (12:34→20:36)
[2016-07-05] MEDS: LOPRESSOR PO SCH ×2 (12:35→20:39)
[2016-07-05] MEDS: CATAPRES PO SCH ×2 (12:35→20:38)
[2016-07-05] MEDS: TYLENOL PO PRN ×2 (12:39→18:11)
[2016-07-05] MEDS: ATIVAN PO SCH (12:41)
[2016-07-05] MEDS: NS 1,000 ML IV SCH ×3 (12:57→18:10)
--- NOTE | 2016-07-05 13:35 | Diag Imaging Result Document ---
PROCEDURE NAME: MYOCARDIAL PERF SCAN, STR/REST - 07/05/2016 DATE OF STUDY: 07/05/2016. INDICATION: Chest pain. PROCEDURES PERFORMED: One-day stress/rest myocardial perfusion imaging. PROCEDURE IN DETAIL: Ms. Pedersen was brought to the nuclear laboratory and had a resting study with injection of 10.8 mCi of technetium-99m sestamibi with the usual imaging protocol utilized. Subsequently, he was brought back and had a Lexiscan stress. At peak stress, was injected with 33.8 mCi of technetium-99m sestamibi with usual imaging protocol utilized. FINDINGS: Lexiscan stress results 1. Baseline EKG shows sinus rhythm, 47 beats per minute. 2. No evidence of ischemic-related EKG changes occurred during the course of the study. No evidence of significant arrhythmias, either. PERFUSION IMAGING RESULTS: 1. No evidence of abnormal extracardiac uptake. 2. The TID ratio is 0.91. 3. Perfusion imaging demonstrates normal homogenous uptake of radiotracer throughout the myocardial segments. 4. Normal ejection fraction of 77%. End-diastolic volume 36, end-systolic volume 8. Normal wall motion. cc: MD Sonia Smith PA
--- NOTE | 2016-07-05 18:01 | PROGRESS NOTE ---
DATE: 07/05/2016 SUBJECTIVE: The patient has no focal complaints. OBJECTIVE: Vital Signs: Blood pressure 121/69, heart rate of 63, respiratory rate of 16, temperature 98.6 degrees, 100% saturation on room air. Cardiovascular: Regular rate and rhythm. Pulmonary: Bilateral breath sounds. Clear to auscultation. GI: Soft, nontender, nondistended. Bowel sounds are positive. LABORATORY DATA: White count 4, hemoglobin and hematocrit 10 and 30, platelets 155,000. Sodium is up to 132, creatinine of 1.4. PROBLEM LIST: 1. Hyponatremia, likely related to hydrochlorothiazide effect. Her sodium is correcting nicely over the last 2 days, it is up to 130. I am just going to continue normal saline because I do not think she has SIADH at this point with normal urine osmolalities, or not high. Her urine is not particularly concentrated which is not consistent with SIADH. 2. Erosive gastritis, duodenal ulcers. She is on PPI treatment. Dr. Ellington is following. The patient does state she takes BC powders on a regular basis at least daily, and we will continue proton pump inhibitor and follow closely. Hold NSAIDs, aspirin, and follow. 3. Chest pain. Atypical, likely related to her other issues. I do not think she has any cardiac issues so I am not going to continue her other issues at this time. 4. Monilial or candidal esophagitis. We will continue fluconazole and follow. DISPOSITION: Possibly home tomorrow. May take about, you know, maybe another 24 hours depending on her course. cc: Reggie Reynoso MD
[2016-07-05] MEDS ORDERED: DIFLUCAN 100 MG/NS 100 MG/50 ML IVPB IV SCH (21:00)
[2016-07-06] MEDS: CARAFATE LIQUID PO SCH ×3 (02:05→14:20)
[2016-07-06] MEDS: TYLENOL PO PRN (05:20)
[2016-07-06] MEDS: NS 1,000 ML IV SCH (05:20)
[2016-07-06 06:08] LABS: HEMATOCRIT 31.5 % (37.0-47.0); HEMOGLOBIN 10.3 g/dL (12.0-16.0); MCH 33.3 PG (27-31); MCHC 32.7 g/dL (33-37); MCV 101.9 FL (81-99); MPV 11.2 FL (7.4-10.4); RBC 3.09 XMIL (4.2-5.4)
[2016-07-06 06:42] LABS: CALCIUM 9.5 mg/dL (8.8-10.2); POTASSIUM 5.1 mmol/L (3.5-5.1)
[2016-07-06] MEDS ORDERED: SODIUM CHLORIDE 0.9% 10 ML ONE ×2 (07:50→14:15)
[2016-07-06] MEDS: PRAVACHOL PO SCH (08:08)
[2016-07-06] MEDS: LOPRESSOR PO SCH (08:08)
[2016-07-06] MEDS: CATAPRES PO SCH (08:08)
[2016-07-06] MEDS: ATIVAN PO SCH (08:08)
[2016-07-06] MEDS: PROTONIX IV SCH (08:08)
[2016-07-06] MEDS: SODIUM CHLORIDE 0.9% INJ SCH (08:08)
[2016-07-06] MEDS: QUESTRAN LIGHT PO SCH (08:10)
[2016-07-06 15:52] VITALS: BP 142/68
--- NOTE | 2016-07-07 19:01 | PROGRESS NOTE ---
DATE: 07/05/2016 SUBJECTIVE: The patient states that she is feeling much better after the medications were started for Vilma esophagitis, multiple ulcers, reflux esophagitis and duodenal ulcer. She admits that she takes a BC powder on a daily basis, sometimes twice a day, and has done so for years just empirically to prevent the onset of headache. She notes that she has been able to tolerate her diet and denies blood in her stool. On exam, her blood pressure is 121/69, pulse 63, respirations 16, temperature of 98.6 degrees.HEENT: Unremarkable. Chest: Is clear. Cardiovascular Examination: Reveals regular rate and rhythm with no gallops or rubs. Abdomen: On abdominal exam, her abdomen is soft and nontender. OBJECTIVE DATA: Is remarkable for hemoglobin of 10.2 with hematocrit of 30.7, and a white count of 4.0 with 155,000 platelets. Sodium is 130, potassium 4.7, chloride 98, CO2 22, BUN 16, creatinine 1.4 and glucose of 97. Her calcium is 9.5, with a magnesium of 2.0. IMPRESSION: 1. Vilma esophagitis. 2. Schatzki's ring with mild restriction. 3. Grade B erosive esophagitis. 4. Hiatal hernia. 5. Erosive gastritis. 6. Multiple gastric ulcers. 7. Pyloric inflammation with restriction. 8. Large duodenal ulcer. 9. Duodenitis. 10. Shelf ulcer 2nd portion of the duodenum. RECOMMENDATION: 1. The patient admits to using NSAIDs on a daily basis. She was counseled to avoid the use. 2. I will complete the 21 day course of Diflucan for treatment of the Vilma esophagitis. 3. Continue PPI therapy but transition to oral omeprazole as an outpatient. She will need twice a day dosing for 6 weeks and then resume once a day dosing. 4. Continue Carafate 1 g p.o. 4 times a day for 12 weeks then stop. 5. She will need a repeat EGD in approximately 12 weeks to reassess the multiple ulcers and to ensure their healing. 6. We will have the patient return to clinic in 2-3 weeks to assess interval progress. cc: MD Valerie Irizarry MD MTDD
--- NOTE | 2016-07-13 06:19 | DISCHARGE SUMMARY ---
ADMISSION DATE: 07/03/2016 DISCHARGE DATE: 07/06/2016 DISCHARGE DIAGNOSES: 1. Duodenal ulcer. 2. Hyponatremia related to hydrochlorothiazide. 3. Erosive gastritis. 4. Atypical chest pain likely related to her gastritis esophagitis. 5. Candidal molilalia esophagitis. 6. Hyponatremia. 7. Chest pain briefly. CONSULTATIONS: 1. Dr. Ellington, GI. 2. Cardiology Dr. Odonnell PROCEDURES: She had an EGD and a myocardial perfusion scan. HISTORY: Briefly, this is a 76-year-old female presenting with weakness and chest pain, history of perforation of the colon previously. Her sodium was low on admission at a level of 120. She was placed on normal saline. She had urine electrolytes. She was on Aldactazide. The following day she had improved. Her sodium had improved to a level of 126. Her urine electrolytes were not consistent with SIADH, possible reset associated with hydrochlorothiazide. She had an EGD done per Dr. Ellington which showed esophageal candidiasis, Schatzki's ring, erosive esophagitis, severe erosive gastritis. Multiple gastric ulcers, duodenal ulcer and duodenitis. She was taking BC powders on a regular basis after further questioning. Echocardiogram was unremarkable with EF 68%. No major valvular problems. Myocardial perfusion scan was unremarkable as well. The EF was 77%. The patient improved on the up to 130. She was felt stable for discharge on the . She was very motivated to go home. DISCHARGE MEDICATIONS: 1. Clonidine 0.2 b.i.d. 2. Lorazepam 0.5 daily. 3. Cozaar 100 daily. 4. Lopressor 50 b.i.d. 5. Prilosec 40 b.i.d. for 2 weeks and then daily. 6. Pravachol 80 daily. 7. Spironolactone 25 daily. 8. Sucralfate. DISPOSITION: Patient clinically stabilized and should go home. I think we will need to contact her to I think initiate therapy persistent with Diflucan or some nystatin because she did have the esophagitis. Her creatinine is 1.6 and she appears stable. Hemoglobin and hematocrit was stable 10 and 30 and 10 and 31. DISCHARGE CONDITION: Stable. cc: MD Dr. Chandana Perez MD
== END 2016-07-06 18:01 | disposition home or self-care (01) ==
LOC: ED 15:54 → 4N 22:13 → SUATTDRO 22:13
PROVIDERS: ATTEND Internal Medicine

== ENCOUNTER 2016-10-07 19:38 | Observation (INO) ==
[2016-10-07] MEDS ORDERED: ASPIRIN PO STA (19:43)
[2016-10-07] MEDS ORDERED: ATIVAN IV ONE (19:44)
[2016-10-07 19:55] LABS: MANUAL DIFF NEEDED? NO
[2016-10-07 20:01] LABS: BASO% 0.2 % (0.0-0.8); EOS# 0.07 X1000 (0.0-0.7); EOS% 1.1 % (0.0-10.0); HEMATOCRIT 38.7 % (37.0-47.0); HEMOGLOBIN 13.2 g/dL (12.0-16.0); IMM GRAN# 0.03 X1000 (0.0-0.04); IMM GRAN% 0.5 % (0.0-0.5); LYMPH# 2.01 X1000 (1.2-3.4); LYMPH% 31.5 % (20.5-51.1); MCH 32.7 PG (27-31); MCHC 34.1 g/dL (33-37); MCV 95.8 FL (81-99); MONO# 0.52 X1000 (0.11-0.59); MONO% 8.1 % (1.7-9.3); NEUT% 58.6 % (42.2-75.2); PLT 171 X1000 (130-400); RBC 4.04 XMIL (4.2-5.4)
--- NOTE | 2016-10-07 20:03 | PROVIDER DOCUMENTATION ---
This chart was entered by Evans Zuniga Scribe, acting as scribe for Erich Schmitt MD. HPI-Cardiac General - General Stated Complaint: svt Time Seen by Provider: 10/07/16 19:43 Source: patient, EMS, old records Allergies/Adverse Reactions: Patient Allergies Allergy/AdvReac Type Severity Reaction Status Date / Time morphine Allergy Severe "MAKES ME Verified 10/07/16 21:41 CRAZY" Sulfa (Sulfonamide AdvReac Severe VOMIT AND Verified 10/07/16 21:41 Antibiotics) DIARRHEA Home Medications: Home Medication List Medication Instructions Recorded Confirmed Last Taken Type Clonidine [Catapres] 0.2 mg PO BID 07/03/16 10/07/16 07/03/16 History Spironolactone 25 mg PO BID 07/03/16 10/07/16 10/07/16 09:00 History Citalopram [Celexa] 40 mg PO DAILY 10/07/16 10/07/16 10/06/16 09:00 History Nystatin Cream [Mycostatin Cream] 1 each PO DAILY 10/07/16 10/07/16 Unknown History - History of Present Illness-Cardiac Nature of Presenting Problem: Pt is a 76 yowf who presents to ER via EMS with CC of "SVT." Pt reports that she was arguing with her and step-daughter at 1830 and states that she developed central CP and palpitations. Pt reports hx of HTN and anxiety. Location: reports: central Severity in ED: mild, moderate Onset/Duration: 1-3 hours ago Timing: still present, improving Palpitation Quality: fast/pounding heart beat Associated Symptoms: denies: abdominal pain, back pain, diaphoresis, dizziness, edema, fatigue, fever/chills, headache, heartburn, nausea, rash, shortness of breath, swelling/lump in chest, syncope, vomiting, weakness Similar Symptoms Previously?: Yes Recently Seen Here or By Another Healthcare Provider: Yes Review of Systems - Adult - REVIEW OF SYSTEMS - ADULT Constitutional: denies: chills, fever, fatique, night sweats, weight gain, weight loss Eyes: reports: no symptoms reported Ears, Nose, Mouth & Throat: reports: no symptoms reported Cardiovascular: reports: chest pain, palpitations. denies: edema, heart murmur , irregular heart rate, orthopnea, poor circulation, PND, syncope Respiratory: reports: no symptoms reported Gastrointestinal: reports: no symptoms reported Genitourinary: reports: no symptoms reported Musculoskeletal: reports: no symptoms reported Integumentary: reports: no symptoms reported Neurological: reports: no symptoms reported Psychiatric: reports: anxiety. denies: anti-depressant use, alcohol/drug dependence, depression, emotional problems, insomnia, panic attacks, suicidal thoughts Endocrine: reports: no symptoms reported Hematologic/Lymphatic: reports: no symptoms reported Allergic/Immunologic: reports: no symptoms reported All Other Systems: Reviewed and Negative Past History - Adult - PAST MEDICAL HISTORY-ADULT Review of Records: reports: Nursing Assessment Review, Medications Reviewed 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) Other Conditions: reports: MRSA - PRIOR SURGERIES/PROCEDURES Surgical/Procedure History: reports: colonoscopy, indwelling device, bowel surgery, breast - IMMUNIZATION STATUS Childhood Immunizations: See Nurse Assessment Flu Vaccine: See Nurse Assessment Physical Exam-General - PHYSICAL EXAM-ADULT Initial Vital Signs Reviewed: Yes - CONSTITUTIONAL General Appearance: appears well, alert, moderate distress, anxious - RESPIRATORY Respiratory: chest non-tender, lungs clear, normal breath sounds, no pleuratic chest pain, no respiratory distress, no accessory muscle use. negative: respiratory distress, decreased breath sounds, accessory muscle use, wheezing - CARDIOVASCULAR Cardiovascular: normal peripheral pulses, tachycardia, other (HTN (169/110)). negative: regular rate, rhythm, bradycardia, irregularly irregular - GASTROINTESTINAL (ABDOMEN) Abdominal Exam: normal bowel sounds, non tender, soft, no organomegaly, no pulsatile mass, other (colostomy bag (Pt states bowel perforation from colonoscopy)). negative: guarding, rebound, tenderness - MUSCULOSKELETAL Extremity: normal range of motion, non-tender, normal gait, normal inspection, no pedal edema, no calf tenderness, normal capillary refill, pelvis stable. negative: deformity, erythema, inflammation, swelling, tenderness - PSYCHIATRIC Psych/Mental Status: normal thought content, normal thought process, oriented x 3, anxious. negative: normal mood/affect Progress - PLAN OF CARE/RESULTS Progress/Plan/Lab Results: Vital Signs - 8 hr 10/07/16 19:48 10/07/16 20:57 10/07/16 21:45 Temperature 98.2 F Pulse Rate 122 H 86 79 Respiratory Rate 19 19 18 Blood Pressure 210/112 143/81 145/76 O2 Sat by Pulse Oximetry 99 94 L 91 L 10/07/16 23:02 Temperature Pulse Rate 78 Respiratory Rate 15 Blood Pressure 128/63 O2 Sat by Pulse Oximetry 100 Laboratory Results - last 24 hr 10/07/16 10/07/16 10/07/16 19:40 19:40 19:40 WBC 6.39 RBC 4.04 L Hgb 13.2 Hct 38.7 MCV 95.8 MCH 32.7 H MCHC 34.1 RDW Std Deviation 12.2 Plt Count 171 MPV 11.0 H Immature Gran % (Auto) 0.5 Neut % (Auto) 58.6 Lymph % (Auto) 31.5 Eagle % (Auto) 8.1 Eos % (Auto) 1.1 Baso % (Auto) 0.2 Immature Gran # (Auto) 0.03 Neut # (Auto) 3.75 Lymph # (Auto) 2.01 Eagle # (Auto) 0.52 Eos # (Auto) 0.07 Baso # (Auto) 0.01 PT INR PTT (Actin FS) D-Dimer 0.75 H Sodium 138 Potassium 4.0 Chloride 98 Carbon Dioxide 21 L Anion Gap 19 BUN 18 Creatinine 1.4 H Estimated GFR/1.73 m2 36 BUN/Creatinine Ratio 13 Glucose 95 Calculated Osmolality 277 Calcium 10.1 Magnesium 1.9 Total Bilirubin 0.29 AST 32 H ALT 27 Alkaline Phosphatase 99 Creatine Kinase 62 Troponin T Eze-V-Qdcjghfqoat Pept Total Protein 7.9 Albumin 5.2 H Globulin 2.7 Albumin/Globulin Ratio 1.9 10/07/16 10/07/16 10/07/16 19:40 19:40 19:40 WBC RBC Hgb Hct MCV MCH MCHC RDW Std Deviation Plt Count MPV Immature Gran % (Auto) Neut % (Auto) Lymph % (Auto) Eagle % (Auto) Eos % (Auto) Baso % (Auto) Immature Gran # (Auto) Neut # (Auto) Lymph # (Auto) Eagle # (Auto) Eos # (Auto) Baso # (Auto) PT 10.2 INR 0.97 PTT (Actin FS) 21.5 L D-Dimer Sodium Potassium Chloride Carbon Dioxide Anion Gap BUN Creatinine Estimated GFR/1.73 m2 BUN/Creatinine Ratio Glucose Calculated Osmolality Calcium Magnesium Total Bilirubin AST ALT Alkaline Phosphatase Creatine Kinase Troponin T < 0.010 Tnx-[id number]-Fmuyhkdpacu Pept 514 H Total Protein Albumin Globulin Albumin/Globulin Ratio Orders Category Date Time Status Admit - [facility] - [facility] Routine AdmDCTranf 10/07/16 23:43 Ordered Activity - Up with Assistance ORDERED Care 10/07/16 23:43 Active Cardiac Monitoring DIRECTED Care 10/07/16 19:43 Completed Intake and Output-Strict ORDERED Care 10/07/16 23:43 Active Nursing- MD Consult Request ROUTINE Care 10/07/16 23:43 Active Oxygen Therapy- ED Nursing DIRECTED Care 10/07/16 19:43 Completed Saline Loc NOW Care 10/07/16 19:43 Completed Vital Signs Order Q 6-HR ASSESS Care 10/07/16 23:43 Active Z-Document. for Tele Applied ORDERED Care 10/07/16 23:43 Completed Physician/Provider Consults Routine Cons 10/07/16 23:43 Ordered Heart Healthy Diet Diet 10/07/16 22:24 Active BASIC METABOLIC PANEL [CHEM] DAILY Lab 10/08/16 06:00 Ordered BASIC METABOLIC PANEL [CHEM] DAILY Lab 10/09/16 06:00 Ordered CBC WITH DIFF [HEME] DAILY Lab 10/08/16 06:00 Ordered CBC WITH DIFF [HEME] DAILY Lab 10/09/16 06:00 Ordered CBC WITH ELECTRONIC DIFF [HEME] Stat Lab 10/07/16 19:40 Completed CK PROFILE [SP CHEM] Stat Lab 10/07/16 19:40 Completed COMPREHENSIVE METABOLIC PANEL [CHEM] Stat Lab 10/07/16 19:40 Completed D-DIMER [CHEM] Stat Lab 10/07/16 19:40 Completed MAGNESIUM [CHEM] Stat Lab 10/07/16 19:40 Completed PRO B-NATRIURETIC PEPTIDE Stat Lab 10/07/16 19:40 Completed PROTIME WITH INR [COAG] Stat Lab 10/07/16 19:40 Completed PTT [COAG] Stat Lab 10/07/16 19:40 Completed TROPONIN T Q6H Lab 10/07/16 23:55 Completed TROPONIN T Q6H Lab 10/08/16 04:27 Ordered TROPONIN T Q6H Lab 10/08/16 10:27 Ordered TROPONIN T Stat Lab 10/07/16 19:40 Completed Aspirin Med 10/07/16 19:43 Discontinued 325 mg PO STAT STA Citalopram [Celexa] Med 10/08/16 09:00 Pending 40 mg PO DAILY Clonidine [Catapres] Med 10/08/16 09:00 Active 0.2 mg PO BID Enoxaparin [Lovenox] Med 10/07/16 23:43 Active 30 mg SUBQ Q24H Lorazepam [Ativan] Med 10/07/16 19:44 Discontinued 1 mg IV NOW ONE Metoprolol [Lopressor] Med 10/07/16 20:46 Discontinued 2.5 mg IV NOW ONE Omeprazole [Prilosec] Med 10/08/16 07:00 Active 40 mg PO DAILY@0700 Ondansetron [Zofran] Med 10/07/16 23:43 Active 4 mg IV Q4H PRN PRN Spironolactone [Aldactone] Med 10/08/16 09:00 Active 25 mg PO BID Telemetry [OM.EQ] Routine Oth 10/07/16 23:43 Active Physical Therapy Eval/Treatment [OM.PT] Routine Ther 10/07/16 23:43 Active Transfer/Admit Order [TRANSFER] Routine Transfer 10/07/16 22:22 Completed Result Diagrams: 10/07/16 19:40 10/07/16 19:40 - EKG 1 Time of EKG reading by physician:: 19:32 EKG Read and Signed by:: Erich Schmitt EKG Interpretation (*Must complete 3 of following elements*): Abnormal (Cannot rule out Anterior infarct, age undetermined) Rate: 129 Rhythm: Sinus tachycardia - CONSULTS/PCP/HOSPITALIST Notification #1 *Consult/PCP/Hospitalist*: Dr. Becker (Hospitalist) Time Discussed: 21:10 (Gave report in ER; Dr. Becker accepted) Departure - Departure Date of Disposition Decision: 10/07/16 Time of Disposition Decision: 23:05 DIAGNOSIS: Tachycardia, Elevated d-dimer Chest pain Qualifiers: Chest pain type: unspecified Qualified Code(s): R07.9 - Chest pain, unspecified Disposition: ADMITTED INPATIENT 09 Certified Medical Emergency: Emergent Condition: Stable - Critical Care Note This patient required my direct & personal management of CC.: Yes Attestation - Physician/ BARB Attestation Patient care was provided by Advanced Practice Provider:: No The physician spent face to face time with patient:: Yes Advanced Practice Provider documentation review:: Supervising physician onsite and consulted in the evaluation and care of this patient. The physician did have a face to face encounter with the patient. This chart was documented by the indicated scribe, (Evans Zuniga Scribe) and accurately reflects the services I performed and decisions made by me, Erich Schmitt MD, as attested by the provider's signature.
[2016-10-07 20:07] LABS: INR 0.97; PROTIME 10.2 Seconds (9.2-11.7); PTT 21.5 Seconds (22.0-36.0)
[2016-10-07 20:16] LABS: ALBUMIN 5.2 g/dL (3.5-5.0); CALCIUM 10.1 mg/dL (8.8-10.2); MAGNESIUM 1.9 mg/dL (1.5-2.7); TOTAL BILIRUBIN 0.29 mg/dL (0.20-1.00); TOTAL PROTEIN 7.9 g/dL (6.3-8.3)
[2016-10-07] MEDS ORDERED: LOPRESSOR IV ONE (20:46)
--- NOTE | 2016-10-07 22:52 | HISTORY AND PHYSICAL ---
PRIMARY CARE PHYSICIAN: Dr. Valerie Chong. CHIEF COMPLAINT: Chest pain, palpitations. HISTORY OF PRESENT ILLNESS: This is a 76-year-old female with a past medical history of hypertension, depression, and anxiety, who presented to the emergency department complaining of chest pain. The patient apparently was having an argument with her and stepdaughter, approximately at 6:30 p.m., when she suddenly developed chest pain in the substernal area that was like dull chest pain and also palpitations. Because of that, EMS was called, and she was brought to the emergency department, where she initially had a heart rate of 160 sinus rhythm. Chest pain started to subside after 20 minutes. Patient reports that this chest pain went to the back. Reports some nausea, but denies diaphoreses. She has not noticed any alleviating or aggravating factor. At the time of my examination, the patient reports no chest pain. Patient is going to be admitted for further evaluation and treatment. The patient had been admitted to the hospital on 07/03/2016 for chest pain as well, where she was seen by Cardiology. Myocardial perfusion scan nuclear medicine and the echocardiogram were completely normal. PAST MEDICAL HISTORY: 1. Hypertension. 2. Anxiety and depression. PAST SURGICAL HISTORY: 1. Status post colon resection, following iatrogenic perforation of the colon. 2. Colostomy bag. 3. Multiple abdominal surgeries secondary to the colostomy bag. 4. Breast augmentation. SOCIAL HISTORY: The patient reports quit smoking 3-4 weeks ago. Patient used to smoke 1 pack per day since she was 64. She drinks alcohol occasionally. It is important to remark that the she was admitted to the hospital because of severe hyponatremia secondary to alcohol consumption in 2014. She denies using any drugs. She is a . FAMILY HISTORY: Positive for ovarian cancer with her mother, and positive for CVA. ALLERGIES: Patient reports being allergic to morphine and sulfa. REVIEW OF SYSTEMS: Eleven systems were reviewed, and all symptoms are related to H P. PHYSICAL EXAMINATION: VITAL SIGNS: Temperature 98.2 degrees. Heart rate upon ER arrival was 122, and now is 79. Heart rate 18. Blood pressure 145/76. O2 saturation 99% on room air. GENERAL: This a 76-year-old female lying in bed, in no acute distress. HEENT: Head is normocephalic, atraumatic. Anicteric sclerae and pale conjunctivae. Mucous membranes moist. NECK: Supple. No JVD noted. No carotid bruits. No lymphadenopathy. No thyromegaly. CARDIOVASCULAR: S1, S2 heard. No murmurs, gallops, or rubs. Regular rate and rhythm. RESPIRATORY: Clear bilaterally to auscultation. No work of breathing or using accessory muscles. ABDOMEN: Soft, nontender to palpation. Bowel sounds present. No organomegaly. Colostomy bag in place. EXTREMITIES: No clubbing, cyanosis, or edema. Peripheral pulses present in both legs. NEUROLOGIC: Patient alert and oriented x3. Moves 4 extremities. Cranial nerves 2-12 grossly normal. LABORATORY DATA: White cell count 6.39, hemoglobin 13.2, hematocrit 38.7, platelets 171,000, with D-dimer 0.75 and creatinine 1.4. ASSESSMENT: 1. Chest pain. 2. Sinus tachycardia. 3. Hypertension. 4. Anxiety and depression. 5. RADHA PLAN: 1. The patient is going to be admitted to the hospital for this episode of chest pain that lasted approximately 30 minutes, along with sinus tachycardia of 160 maximal heart rate. It is important to remark that this patient has had a chest pain workup done recently on June 2016, which was unremarkable. At this point, we prefer to consult Cardiology and see what they think. As we mentioned before, normal stress test in June 2016. 2. For hypertension, we are going to continue with home medications. We are going to place this patient on telemetry, 3. For anxiety and depression, we are going to continue home medications. cc: Piotr Harden MD MTDD
[2016-10-07] MEDS ORDERED: ZOFRAN IV PRN (23:43)
[2016-10-08 05:36] LABS: MANUAL DIFF NEEDED? NO
[2016-10-08 05:40] LABS: BASO% 0.4 % (0.0-0.8); EOS# 0.07 X1000 (0.0-0.7); EOS% 1.3 % (0.0-10.0); HEMATOCRIT 36.8 % (37.0-47.0); HEMOGLOBIN 12.4 g/dL (12.0-16.0); LYMPH# 1.43 X1000 (1.2-3.4); LYMPH% 27.5 % (20.5-51.1); MCH 32.3 PG (27-31); MCHC 33.7 g/dL (33-37); MCV 95.8 FL (81-99); MONO# 0.48 X1000 (0.11-0.59); MONO% 9.2 % (1.7-9.3); MPV 11.2 FL (7.4-10.4); NEUT% 61.6 % (42.2-75.2); PLT 178 X1000 (130-400); RBC 3.84 XMIL (4.2-5.4)
[2016-10-08] MEDS: PRILOSEC PO SCH ×2 (05:55→06:32)
[2016-10-08] MEDS: LOVENOX SUBQ SCH ×2 (05:55→06:32)
[2016-10-08] MEDS: TYLENOL PO PRN ×2 (05:55→19:52)
[2016-10-08 06:01] LABS: CALCIUM 9.9 mg/dL (8.8-10.2); POTASSIUM 4.3 mmol/L (3.5-5.1)
[2016-10-08] MEDS ORDERED: CELEXA PO SCH (09:00)
[2016-10-08] MEDS: CATAPRES PO SCH ×2 (09:36→21:14)
[2016-10-08] MEDS: ALDACTONE PO SCH ×2 (09:36→21:14)
[2016-10-08 11:53] LABS: FREE T4 1.06 ng/dL (0.93-1.70)
[2016-10-08] MEDS: LOPRESSOR PO SCH ×2 (12:42→21:14)
--- NOTE | 2016-10-08 13:39 | Diag Imaging Result Doc PS360 ---
ANGIOGRAM/PULMONARY ARTERIES - 10/08/2016 INDICATION: chest pain TECHNIQUE: Axial CT images were obtained after administering intravenous contrast. Coronal MIP images were generated. A CT dose reduction protocol was used. COMPARISON: None FINDINGS: There is no pulmonary embolism. Heart size is normal with no pericardial effusion. No mass or adenopathy. There is irregular heterogeneous enlargement of the thyroid gland mainly the right lobe. This lobe measures 4 x 3.3 x 4.9 cm in AP, lateral, and craniocaudal dimensions. There are bilateral subglandular breast implants with capsular calcification. There are some scattered linear atelectasis/scarring in the lung bases. There are also some scattered small pulmonary nodules measuring 5 mm or less. There are calcified granulomas in the right lower lobe. There is a large right renal cyst measuring 6.4 cm. Otherwise upper abdominal images are unremarkable. There are moderate degenerative changes of the spine. No acute or suspicious bony lesion. IMPRESSION: 1. Negative for pulmonary embolism. 2. Apparent thyroid goiter worst at the right lobe. 3. Very small scattered pulmonary nodules. Consider follow-up chest CT in about one year. Electronically signed by Michael Mistry 10/08/2016 1:37 PM
--- NOTE | 2016-10-08 16:17 | PROGRESS NOTE ---
DATE: 10/08/2016 SUBJECTIVE: Patient has no focal complaints. OBJECTIVE: Vital signs: Blood pressure 133/66, heart rate of 105, respiratory rate 20, temperature 97.8 degrees. Cardiovascular: Regular rate and rhythm. Pulmonary: Bilateral breath sounds. Clear to auscultation. GI: Soft, nontender, nondistended. Bowel sounds are positive. LABORATORY DATA: White count 5, hemoglobin and hematocrit 12 and 36, creatinine 1.3. PROBLEM LIST: Chest pain, atypical. Workup was really been unrevealing. She had a negative stress test in June. Cardiology has been consulted. Waiting on their recommendation. She was tachycardic, but is no longer. She has been placed on metoprolol to that end and seems to be helping with her tachycardia. She is also on clonidine. That may be a home medication for her. So, we will continue to monitor that. This is atypical and may be other sources, such as gastrointestinal or musculoskeletal. I am going to do a right upper quadrant. If all those tests are negative, I would recommend outpatient follow up with GI, but I think she could be discharged home, either later today or in the morning once all her tests have been completed. cc: Reggie Reynoso MD
--- NOTE | 2016-10-08 16:31 | ECHO REPORT ---
ORDER DATE: 10/08/2016 ECHOCARDIOGRAM: INDICATION: Chest pain. Rule out thrombus. FINDINGS: This is a somewhat limited study with very limited Doppler evaluation performed 1. Right atrium appears normal in size. 2. There is mild tricuspid regurgitation. Insufficient data to estimate RV systolic pressure. 3. Normal RV size and systolic function. 4. No significant pulmonic insufficiency on very limited evaluation. 5. Normal left atrial size. 6. No mitral valve prolapse. No significant mitral regurgitation was identified. 7. Normal LV size with an end-diastolic dimension of 3.2. Normal wall thicknesses with a post ventricular septal wall thickness is 0.9 cm each. Normal LV systolic function. Calculated EF of 62% with normal wall motion. 8. Aortic valve opens well, appears trileaflet. No evidence of stenosis or insufficiency. 9. Aorta appears normal visualized segments. 10. No pericardial effusion seen. 11. No clear evidence of intracardiac thrombus was visualized on this study. cc: MD Sonia Smith PA
--- NOTE | 2016-10-08 18:04 | CONSULTATION ---
DATE OF CONSULTATION: 10/08/2016 IMPRESSION: 1. Episode of chest discomfort following family discord and significant emotional distress. Chest symptoms had mixed features for possible myocardial ischemia. Serial cardiac enzymes negative. Recent stress myocardial perfusion study negative for evidence of inducible myocardial ischemia. 2. Hypertension. 3. Chronic cigarette use, recently discontinued. 4. Anxiety/depression. 5. Persistent sinus tachycardia of unclear etiology. 6. Abnormal D-dimer, with history of previous pulmonary embolus 5 years or so ago in the midst of prolonged hospitalization for surgical abdomen. RECOMMENDATIONS: 1. Screen for pulmonary embolus with CT angiography. 2. Limited echocardiography to reassess left ventricular systolic function. 3. Check thyroid function studies. 4. Initiate metoprolol. HISTORY: This 76-year-old female, with past history of hypertension, anxiety/depression and previous pulmonary embolus in the midst of prolonged hospitalization for surgical abdominal process, was admitted for evaluation of chest pain and sinus tachycardia. She relates significant family discord and emotional distress, after which she started feeling a burning discomfort across the precordium. Discomfort was accompanied by some palpitations, and radiated to both shoulders. EMS was summoned and, en route to the hospital, discomfort resolved. She was noted to have sinus tachycardia. She relates the discomfort lasted approximately 30 minutes. She was recently hospitalized in the last few months and had noninvasive cardiac workup, including stress myocardial perfusion study which was negative. She cannot recall having had her most recent chest discomfort before. She does recall that she has been told her heart runs fast in the past. PAST MEDICAL HISTORY: 1. Hypertension. 2. Anxiety/depression. 3. History of previous pulmonary embolus approximately 5 years ago during prolonged hospital stay for surgical abdominal process. 4. Status post multiple abdominal surgeries for colon process with, ultimately, the patient having complete colon resection and chronic colostomy. 5. Status post breast augmentation procedure. ALLERGIES: She is allergic or intolerant to morphine and sulfa. MEDICATIONS PRIOR TO ADMISSION: As listed. SOCIAL HISTORY: She has history of previous cigarette use, smoking 1 pack of cigarettes per day for many years, but quit 4 weeks ago. FAMILY HISTORY: Negative for premature coronary disease. Positive for ovarian cancer and stroke. REVIEW OF SYSTEMS: Pulmonary: Negative. Gastrointestinal: Negative/noncontributory. Constitutional: Negative/noncontributory. Remainder review of systems negative/noncontributory, with 14 total systems reviewed. PHYSICAL EXAMINATION: General: This is a pleasant, elderly female in no distress. Vital signs: Blood pressure 163/74, heart rate 104 and regular, with ECG monitor showing sinus tachycardia. HEENT: Extraocular movements intact. Mucous membranes moist. Neck: Supple, without jugular venous distention. There are no carotid bruits. Chest: Clear to auscultation bilaterally. Cardiac: Reveals a regular rate and rhythm, without appreciable murmur or gallop. Abdomen: Soft, nontender. Bowel sounds are normal. Extremities: Extremities are without edema. Neurologic: Reveals her to be alert and fully-oriented. Speech is fluent. Moves all 4 extremities equally well. Skin: Warm dry. Psychiatric: Exam reveals her mood to be appropriate. DIAGNOSTIC DATA: ECG demonstrates sinus tachycardia. LABORATORY DATA: Includes a BUN 19, creatinine 1.3. Hematocrit 36.8, white blood cell count 5.2. D-dimer 0.75. CPK 62, troponin less than 0.01 x 3 sets. cc: Papito Min MD
[2016-10-09] MEDS: LOVENOX SUBQ SCH (06:18)
[2016-10-09] MEDS: PRILOSEC PO SCH (06:18)
[2016-10-09] MEDS: TYLENOL PO PRN (06:19)
--- NOTE | 2016-10-09 07:31 | EKG Report ---
Test Performed on : 10/09/2016 06:32:37 AM Test Reason : chest pain Blood Pressure : / mmHG Vent. Rate : 052 BPM Atrial Rate : 052 BPM P-R Int : 178 ms QRS Dur : 082 ms QT Int : 454 ms P-R-T Axes : 061 039 066 degrees QTc Int : 422 ms Sinus bradycardia. Otherwise normal ECG When compared with ECG of 05-JUL-2016 05:44, No significant change was found Confirmed by Winston Titus DO ([id number]) on 10/13/2016 3:18:28 PM
--- NOTE | 2016-10-09 07:37 | Diag Imaging Result Doc PS360 ---
US ABDOMEN-COMPLETE - 10/09/2016 INDICATION: chest pain COMPARISON: None FINDINGS: There is mild cortical thinning of the kidneys bilaterally. Renal sizes are normal. There is a large right renal cyst measuring 7.3 cm. There is a small left renal cyst measuring 8 mm. The liver is mildly fatty. The gallbladder, pancreas, and spleen are normal. Common bile duct measures 1 cm. Aorta, IVC, and main portal vein are patent. IMPRESSION: 1. Hepatic steatosis. 2. Mild renal atrophy. Bilateral renal cysts. Electronically signed by Michael Mistry 10/09/2016 7:35 AM
[2016-10-09 08:51] LABS: MANUAL DIFF NEEDED? NO
[2016-10-09] MEDS ORDERED: CELEXA PO SCH (09:00)
[2016-10-09 09:01] LABS: BASO% 0.2 % (0.0-0.8); EOS# 0.08 X1000 (0.0-0.7); EOS% 1.5 % (0.0-10.0); HEMATOCRIT 36.8 % (37.0-47.0); HEMOGLOBIN 12.2 g/dL (12.0-16.0); LYMPH# 0.73 X1000 (1.2-3.4); LYMPH% 13.5 % (20.5-51.1); MCH 31.8 PG (27-31); MCHC 33.2 g/dL (33-37); MCV 95.8 FL (81-99); MONO# 0.44 X1000 (0.11-0.59); MONO% 8.2 % (1.7-9.3); MPV 11.1 FL (7.4-10.4); NEUT% 76.6 % (42.2-75.2); PLT 196 X1000 (130-400); RBC 3.84 XMIL (4.2-5.4)
[2016-10-09] MEDS: CATAPRES PO SCH (09:29)
[2016-10-09] MEDS: LOPRESSOR PO SCH (09:29)
[2016-10-09] MEDS: ALDACTONE PO SCH (09:29)
[2016-10-09 09:33] LABS: CALCIUM 10.5 mg/dL (8.8-10.2); POTASSIUM 4.6 mmol/L (3.5-5.1)
[2016-10-09 16:18] VITALS: BP 111/56
--- NOTE | 2016-10-09 17:42 | DISCHARGE SUMMARY ---
ADMISSION DATE: 10/07/2016 DISCHARGE DATE: 10/09/2016 DISCHARGE DIAGNOSES: 1. Atypical chest pain. 2. Relative tachycardia. 3. Hypertension. 4. Anxiety. HOSPITAL COURSE: Briefly this is a 76-year-old female presenting with chest pain and tachycardia. She was admitted for treatment. Her heart rate had gotten up as high as 160. She had a cardiac workup in June which was unrevealing. She underwent CT angiogram on the which showed negative PE but some thyroid enlargement. Echo on the showed normal EF, otherwise really unremarkable. She did undergo an abdominal ultrasound which did not show any pathology in her gallbladder. She had some hepatic steatosis but nothing major. Clinically she was stable and was discharged. Cardiology was consulted and recommended initiation of Lopressor in addition to her clonidine. Her heart rate did come down significantly and thyroid function tests were normal. Heart rate dipped down into the 50s so I am going to discharge her on the Toprol but only at 25 daily. OTHER DISCHARGE MEDICATIONS: Celexa 40, Catapres 0.2 b.i.d. Toprol-XL 25 daily, Mycostatin and spironolactone. Follow up with her PCP in [address] Chong and then consider follow up with Dr. Putnam or Dr. Hamilton for GI workup. TIME SPENT: A 32-minute discharge. cc: Reggie Reynoso MD
== END 2016-10-09 17:40 | disposition home or self-care (01) ==
LOC: ED 19:38 → 3N 19:38 → SUATTDRO 23:08 → 3N 23:15
PROVIDERS: ATTEND Internal Medicine

== ENCOUNTER 2018-11-21 04:57 | Inpatient (IN) ==
[2018-11-21] MEDS ORDERED: ASPIRIN PO ONE (05:11)
[2018-11-21] MEDS ORDERED: LOPRESSOR IV ONE (05:13)
[2018-11-21] MEDS ORDERED: ZOFRAN IV ONE (05:13)
[2018-11-21] MEDS ORDERED: DEMEROL IV ONE ×2 (05:13→06:36)
[2018-11-21] MEDS ORDERED: NS 1,000 ML IV ONE (05:14)
[2018-11-21 05:53] LABS: BASO# 0.01 X1000 (0.0-0.2); BASO% 0.1 % (0.0-0.8); HEMATOCRIT 40.8 % (37.0-47.0); HEMOGLOBIN 14.4 g/dL (12.0-16.0); IMM GRAN# 0.04 X1000 (0.0-0.04); IMM GRAN% 0.3 % (0.0-0.5); LYMPH# 0.49 X1000 (1.2-3.4); LYMPH% 3.4 % (20.5-51.1); MCH 36.2 PG (27-31); MCHC 35.3 g/dL (33-37); MCV 102.5 FL (81-99); MONO# 0.96 X1000 (0.11-0.59); MONO% 6.6 % (1.7-9.3); MPV 10.7 FL (7.4-10.4); NEUT# 13.08 X1000 (1.4-6.5); NEUT% 89.6 % (42.2-75.2); PLT 186 X1000 (130-400); RBC 3.98 XMIL (4.2-5.4); RDW 13.5 % (11.5-14.5); WBC 14.58 X1000 (4.8-10.8)
[2018-11-21 05:55] LABS: INR 0.98; PROTIME 13.1 Seconds (11.0-16.0)
[2018-11-21 05:56] LABS: PTT 26.3 Seconds (22.3-41.8)
[2018-11-21 06:02] LABS: ALB/GLOB RATIO 1.3; ALBUMIN 4.3 g/dL (3.5-5.0); CALCIUM 10.6 mg/dL (8.8-10.2); CREATININE 1.6 mg/dL (0.5-0.9); POTASSIUM 3.2 mmol/L (3.5-5.1); TOTAL BILIRUBIN 1.69 mg/dL (0.20-1.00); TOTAL PROTEIN 7.7 g/dL (6.3-8.3)
--- NOTE | 2018-11-21 06:11 | Diag Imaging Result Doc PS360 ---
EXAM: CHEST-1 VIEW HISTORY: cp TECHNIQUE: Chest single view COMPARISON: 05/21/2018 FINDINGS: The lungs are well expanded. The heart is not enlarged. The vessels are not distended. There are no infiltrates. No effusion identified. There are breast implants. IMPRESSION: Negative exam. Electronically signed by Pillo García 11/21/2018 6:09 AM
--- NOTE | 2018-11-21 06:21 | PROVIDER DOCUMENTATION ---
HPI-Chest Pain - General Chief Complaint: Chest Pain Stated Complaint: CHEST PAIN/SPB/VOMITING/HISTORY OF HEART PROBLEMS Time Seen by Provider: 11/21/18 05:00 Source: patient Allergies/Adverse Reactions: Patient Allergies Allergy/AdvReac Type Severity Reaction Status Date / Time morphine Allergy Severe "MAKES ME Verified 11/21/18 05:09 CRAZY" Sulfa (Sulfonamide AdvReac Severe VOMIT AND Verified 11/21/18 05:09 Antibiotics) DIARRHEA Home Medications: Home Medication List Medication Instructions Recorded Confirmed Last Taken Type Spironolactone 25 mg PO BID 07/03/16 09/18/17 09/18/17 History Citalopram [Celexa] 40 mg PO DAILY 10/07/16 09/18/17 09/18/17 History ATORVAstatin [Lipitor] 80 mg PO DAILY 09/18/17 09/18/17 09/18/17 History Magnesium 250 mg PO DAILY 09/18/17 09/18/17 09/18/17 History Metoprolol Succinate [Toprol Xl] 200 mg PO DAILY 09/18/17 09/18/17 09/18/17 History Ticagrelor [Brilinta] 90 mg PO BID 09/18/17 09/18/17 09/18/17 History - History of Present Illness-CP Nature of Presenting Problem: 78 y/o WF c/o lt sided chest pain that started tonight and radiates to lt mohinder ulder. Pt also notes several episodes of N/V. She has hx of CAD and sees Dr Odonnell. Location: reports: other (lt chest) Chest Pain Radiation: reports: shoulders (lt shoulder) Quality of Pain: reports: aching, pressure Severity in ED: moderate Onset/Duration: 4-6 hours ago Timing: still present Context/Activities at Onset: reports: rest Modifying Factors: improves with: vomiting Associated Symptoms: reports: nausea, vomiting Nitro Today/Relief: no nitro taken today Aspirin Treatment Today: no aspirin today Prior Chest Pain/Cardiac Workup: reports: heart attack Similar Symptoms Previously?: Yes Recently Seen Here or By Another Healthcare Provider: No Review of Systems - Adult - REVIEW OF SYSTEMS - ADULT Constitutional: reports: no symptoms reported, see HPI Eyes: reports: no symptoms reported, see HPI Ears, Nose, Mouth & Throat: reports: no symptoms reported, see HPI Cardiovascular: reports: see HPI, chest pain Respiratory: reports: no symptoms reported, see HPI Gastrointestinal: reports: see HPI, nausea, vomiting Genitourinary: reports: no symptoms reported, see HPI Musculoskeletal: reports: no symptoms reported, see HPI Integumentary: reports: no symptoms reported, see HPI Neurological: reports: no symptoms reported, see HPI Psychiatric: reports: no symptoms reported, see HPI Endocrine: reports: no symptoms reported, see HPI Hematologic/Lymphatic: reports: no symptoms reported, see HPI Allergic/Immunologic: reports: no symptoms reported, see HPI All Other Systems: Reviewed and Negative Past History - Adult - PAST MEDICAL HISTORY-ADULT Review of Records: reports: Nursing Assessment Review, Medications Reviewed, Social history reviewed & non-contributory. Cardiovascular: reports: cardiac disease, HTN Respiratory: reports: other (PE) Gastrointestinal: reports: other (colostomy) Musculoskeletal: reports: chronic pain Neurological: reports: other (damage to nerve in left leg) Other Conditions: reports: MRSA - PRIOR SURGERIES/PROCEDURES Surgical/Procedure History: reports: colonoscopy, indwelling device, bowel surgery, breast - IMMUNIZATION STATUS Childhood Immunizations: See Nurse Assessment Flu Vaccine: See Nurse Assessment Physical Exam-General - PHYSICAL EXAM-ADULT Initial Vital Signs Reviewed: Yes - CONSTITUTIONAL General Appearance: alert, mild distress - EYES Eyes: PERRL/EOMI - HEAD, EARS, NOSE, MOUTH & THROAT HENMT: normocephalic/atraumatic, moist mucous membranes - NECK Neck: non-tender, full range of motion, supple, normal inspection - RESPIRATORY Respiratory: chest non-tender, lungs clear, normal breath sounds, no pleuratic chest pain, no respiratory distress, no accessory muscle use - CARDIOVASCULAR Cardiovascular: normal peripheral pulses, no edema, no gallop, no JVD, no murmur , tachycardia - GASTROINTESTINAL (ABDOMEN) Abdominal Exam: normal bowel sounds, non tender, soft, no organomegaly, no pulsatile mass - LYMPHATIC Lymphatic: no adenopathy - MUSCULOSKELETAL Back Exam: normal inspection, no CVA tenderness, no vertebral tenderness Extremity: normal range of motion, non-tender, normal gait, normal inspection, no pedal edema, no calf tenderness, normal capillary refill - SKIN Integumentary: normal color, normal turgor - NEUROLOGIC Neurologic: associate pastor II-XII nml as tested, grossly normal, no motor/sensory deficits - PSYCHIATRIC Psych/Mental Status: normal mood/affect, normal thought content, normal thought process, oriented x 3 - HEART Score HEART Score: History: Moderately Suspicious HEART Score: ECG: Non-Specific Repolarization Disturbance/LBBB/PM HEART Score: Age: > or = 65 Years HEART Score: Risk Factors for Atherosclerotic Disease: > or = 3 Risk Factors or History of Atherosclerotic Disease HEART Score: Troponin: < or = Normal Limit Total HEART Score:: 6 Progress - PLAN OF CARE/RESULTS Progress/Plan/Lab Results: Vital Signs - 8 hr 11/21/18 05:04 11/21/18 05:06 11/21/18 05:07 Temperature 97.2 F L Pulse Rate 128 H Respiratory Rate 13 Blood Pressure 206/128 206/128 O2 Sat by Pulse Oximetry 98 98 98 11/21/18 05:17 11/21/18 05:30 11/21/18 05:31 Temperature Pulse Rate 137 H 130 H 125 H Respiratory Rate 19 18 18 Blood Pressure 176/141 177/101 O2 Sat by Pulse Oximetry 98 98 98 11/21/18 05:45 11/21/18 05:46 11/21/18 06:00 Temperature Pulse Rate 110 H 105 H 103 H Respiratory Rate 17 17 15 Blood Pressure 162/103 O2 Sat by Pulse Oximetry 97 97 97 11/21/18 06:01 Temperature Pulse Rate 104 H Respiratory Rate 20 Blood Pressure 174/116 O2 Sat by Pulse Oximetry 97 Laboratory Results - last 24 hr 11/21/18 11/21/18 11/21/18 05:23 05:23 05:23 WBC 14.58 H RBC 3.98 L Hgb 14.4 Hct 40.8 MCV 102.5 H MCH 36.2 H MCHC 35.3 RDW Std Deviation 13.5 Plt Count 186 MPV 10.7 H Immature Gran % (Auto) 0.3 Neut % (Auto) 89.6 H Lymph % (Auto) 3.4 L Glasscock % (Auto) 6.6 Eos % (Auto) 0.0 Baso % (Auto) 0.1 Immature Gran # (Auto) 0.04 Neut # (Auto) 13.08 H Lymph # (Auto) 0.49 L Glasscock # (Auto) 0.96 H Eos # (Auto) 0.00 Baso # (Auto) 0.01 PT INR PTT (Actin FS) Sodium 138 Potassium 3.2 L Chloride 95 L Carbon Dioxide 20 L Anion Gap 23 BUN 25 H Creatinine 1.6 H Estimated GFR/1.73 m2 31 BUN/Creatinine Ratio 16 Glucose 196 H Calculated Osmolality 285 Calcium 10.6 H Total Bilirubin 1.69 H AST 175 H ALT 115 H Alkaline Phosphatase 166 H Troponin T Hsy-E-Ybvqutocojq Pept 1616 H Total Protein 7.7 Albumin 4.3 Globulin 3.4 Albumin/Globulin Ratio 1.3 11/21/18 11/21/18 05:23 05:23 WBC RBC Hgb Hct MCV MCH MCHC RDW Std Deviation Plt Count MPV Immature Gran % (Auto) Neut % (Auto) Lymph % (Auto) Glasscock % (Auto) Eos % (Auto) Baso % (Auto) Immature Gran # (Auto) Neut # (Auto) Lymph # (Auto) Glasscock # (Auto) Eos # (Auto) Baso # (Auto) PT 13.1 INR 0.98 PTT (Actin FS) 26.3 Sodium Potassium Chloride Carbon Dioxide Anion Gap BUN Creatinine Estimated GFR/1.73 m2 BUN/Creatinine Ratio Glucose Calculated Osmolality Calcium Total Bilirubin AST ALT Alkaline Phosphatase Troponin T 0.020 Xfr-A-Xwalghvxjav Pept Total Protein Albumin Globulin Albumin/Globulin Ratio Orders Category Date Time Status cxr [CHEST-1 VIEW] [RAD] Stat Exams 11/21/18 05:01 Completed CBC WITH ELECTRONIC DIFF [HEME] Stat Lab 11/21/18 05:23 Completed COMPREHENSIVE METABOLIC PANEL [CHEM] Stat Lab 11/21/18 05:23 Completed PRO B-NATRIURETIC PEPTIDE Stat Lab 11/21/18 05:23 Completed PROTIME WITH INR [COAG] Stat Lab 11/21/18 05:23 Completed PTT [COAG] Stat Lab 11/21/18 05:23 Completed TROPONIN T Stat Lab 11/21/18 05:23 Completed 0.9% Sodium Chloride Inj [Ns] 1,000 ml Med 11/21/18 05:14 Discontinued IV 999 mls/hr Aspirin Med 11/21/18 05:11 Discontinued 325 mg PO NOW ONE Meperidine [Demerol] Med 11/21/18 05:13 Discontinued 25 mg IV NOW ONE Metoprolol [Lopressor] Med 11/21/18 05:13 Discontinued 5 mg IV NOW ONE Ondansetron [Zofran] Med 11/21/18 05:13 Discontinued 4 mg IV NOW ONE EKG [EKG] Stat Ther 11/21/18 05:01 Ordered At recheck, pt noted that her pain was greatly improved after meds in the ER. Result Diagrams: 11/21/18 05:23 11/21/18 05:23 - CONSULTS/PCP/HOSPITALIST Notification #1 *Consult/PCP/Hospitalist*: Dr Orellana Time Discussed: 06:23 Consult Disposition: Will see in ED, Admit Departure - Departure Date of Disposition Decision: 11/21/18 Time of Disposition Decision: 06:24 DIAGNOSIS: Chest pain, Tachycardia, Renal insufficiency, CHF (congestive heart failure), Elevated LFTs Disposition: ADMITTED INPATIENT 09 Certified Medical Emergency: Emergent Condition: Fair Referrals and Follow-Ups: Valerie Chong MD [Primary Care Provider] - - Critical Care Note This patient required my direct & personal management of CC.: No Attestation - Physician/ BARB Attestation Patient care was provided by Advanced Practice Provider:: No The physician spent face to face time with patient:: Yes Advanced Practice Provider documentation review:: Supervising physician onsite and consulted in the evaluation and care of this patient. The physician did have a face to face encounter with the patient.
[2018-11-21] MEDS: NITROGLYCERIN SL PRN ×3 (06:32→08:20)
--- NOTE | 2018-11-21 06:48 | EKG Report ---
Test Performed on : 11/21/2018 05:11:42 AM Test Reason : cp Blood Pressure : / mmHG Vent. Rate : 126 BPM Atrial Rate : 126 BPM P-R Int : 154 ms QRS Dur : 074 ms QT Int : 300 ms P-R-T Axes : 065 036 067 degrees QTc Int : 434 ms Sinus tachycardia. Cannot rule out Anterior infarct , age undetermined Abnormal ECG When compared with ECG of 09-OCT-2016 06:32, Vent. rate has increased BY 74 BPM Unconfirmed Result
--- NOTE | 2018-11-21 09:23 | HISTORY AND PHYSICAL ---
PRIMARY CARE PHYSICIAN: Dr. Chong. MACHINIST LINOTYPE: Dr. Odonnell. CHIEF COMPLAINT: Substernal chest pain radiating under her left breast that was dull and intermittent with associated nausea, vomiting, and shortness of breath. HISTORY OF PRESENTING ILLNESS: This is a 78-year-old female who presents to [facility] with complaints of substernal chest pain that radiated underneath her left breast and into her left shoulder. States she also had some nausea, vomiting, and shortness of breath. Her heart score was a 6. She has a history of an myocardial infarction with coronary artery disease and heart stent placement in the past. She is followed by Dr. Odonnell with Cardiology. Her first set of cardiac enzymes were negative. Troponin of 0.020. ProBNP was 1616. Her potassium was 3.2. Her BUN 25, creatinine 1.6 is around her baseline. She also has some elevation in her LFTs with a total bilirubin of 1.69, AST of 175, ALT of 115, alkaline phosphatase of 166. She does admit to drinking 2 beers daily and 1 ounce of liquor daily. So, she will be admitted for further evaluation and treatment. PAST MEDICAL HISTORY: Coronary artery disease, hypertension, pulmonary embolism, chronic pain, and methicillin-resistant Staphylococcus aureus (MRSA). PAST SURGICAL HISTORY: Colostomy, heart stent placement, and breast implants. FAMILY HISTORY: Heart disease. SOCIAL HISTORY: She currently lives with family. Smokes 3/4 of a pack of cigarettes a day since she was 59 years old. Drinks 2 beers and 1 ounce of liquor daily. Denies any illicit drug use. ALLERGIES: Morphine and sulfa. HOME MEDICATIONS: She takes Lipitor 80 mg p.o. daily, Celexa 40 mg p.o. daily, magnesium 250 mg p.o. daily and metoprolol 200 mg p.o. daily. LABORATORY DATA: White blood cell count of 14.58, hemoglobin of 14.4, hematocrit 40.8, platelets 186,000. PT 13.1, INR 0.98. Sodium of 138, potassium 3.2, chloride 95, CO2 20, BUN of 25, creatinine of 1.6, glucose 196. Total bilirubin of 1.69, AST of 175, ALT of 115, alkaline phosphatase 166. Troponin 0.020. ProBNP of 1616. Chest x-ray with a negative exam. EKG was sinus tachycardia at 126. REVIEW OF SYSTEMS: She denied any fever, chills, blurred vision, dizziness. She had substernal chest pain that radiated under her left breast and then across her left shoulder, shortness of breath, nausea, vomiting. Denied any constipation, diarrhea, abdominal pain, burning or hurting with urination. PHYSICAL EXAMINATION: VITAL SIGNS: On arrival, she had a temperature of 97.2 degrees, pulse of 128, respirations 13, blood pressure was 206/128. Currently, her blood pressure is 178/104. GENERAL: This is a 78-year-old female who is lying in the bed and answers questions appropriately. HEENT: Normocephalic, atraumatic. Normal ENT inspection. Oropharynx and nares are clear. Eyes: Pupils are equal, round, and reactive to light and accommodation. Extraocular movements are intact. NECK: Normal inspection, normal range of motion. LUNGS: Clear to auscultation bilaterally with equal lung expansion and chest wall movement. HEART: With sinus tachycardia, but it has improved down to 102 at this time. She came in at 128, but no murmurs, rubs, or gallops. ABDOMEN: Soft, nontender, nondistended. Bowel sounds are present x4 quadrants. MUSCULOSKELETAL: She has 5/5 strength x4 extremities. NEUROLOGICAL: The cranial nerves 2-12 appear grossly intact. ASSESSMENT: 1. Atypical Chest/epigastric abdominal pain. 2. Uncontrolled hypertension. 3. Hypokalemia. 4. Leukocytosis with no clear area of infection. 5. ETOH abuse. 6. Elevated liver function tests. PLAN: She will be admitted to the medical unit, placed on telemetry. O2 per protocol. Held NPO. Consult Cardiology. Place on SCDs for DVT prophylaxis. We will give her a 40 mEq potassium chloride p.o. x1 now. We will give her hydralazine 10 mg IV q.4 hours p.r.n. for a systolic blood pressure greater than 190, diastolic greater than 100. Continue her home medications as previously identified. We are rechecking a CPK and troponin, the second set now and further orders after seen by attending and by talent acquisition consultant. Dictated by DARYN Benavidez for Christos Pyle MD cc: Tea IselaDARYN flores MD Bhavna Gowda, MD I agree with most components of history, physical, assessment and plan. A spearate addendum has been dictated . JEANETTE
[2018-11-21] MEDS ORDERED: LR 1,000 ML IV SCH (09:45)
[2018-11-21] MEDS ORDERED: APRESOLINE IV PRN (10:05)
--- NOTE | 2018-11-21 10:25 | HISTORY AND PHYSICAL ---
ADDENDUM TO HISTORY AND PHYSICAL DICTATED BY NURSE PRACTITIONER: Agree with most components of history, physical, assessment, and plan. HISTORY OF PRESENT ILLNESS: In brief, Ms. Pedersen is a 78-year-old lady with past medical history of coronary artery disease with stent in 2017, essential hypertension, colon rupture during colonoscopy, status post colostomy in 2013, essential hypertension, hyperlipidemia, and anxiety, alcohol abuse, who came in on 11/21/2018 with chief complaints of nausea, vomiting, and poor oral intake since 2 days, and left lower rib cage under the breast pain radiating to left back since 6 hours duration, as she was worried about another heart attack. In the emergency room, she was found to have tachycardia, leukocytosis, lactic acidosis, and kidney dysfunction, so the hospitalist team was consulted for further management. At the time of my evaluation, patient is still feeling nauseous and is vomiting, and she is complaining of left under the breast pain radiating to back. She stated her colostomy output has significantly decreased since last 2 days. Her is at bedside. Her last drink was about 24 hours ago. She drinks beer and alcohol daily, and if she does not drink, she develops withdrawal symptoms. PHYSICAL EXAMINATION: VITAL SIGNS: Currently, temperature 98 degrees, pulse 102, respiratory rate 16, blood pressure 170/100. She is saturating 100% on 2 L nasal cannula. GENERAL: She does not appear in acute distress. HEENT: Oral cavity is moist. CHEST: Air entry bilaterally equal. No wheeze, rhonchi, crackles.Cardiovascular: S1, S2 normal. Tachycardic. No murmur, rub, or gallop. Abdomen: Soft. There is midline depressed scar of laparotomy. Colostomy bag has almost nil output. She has tenderness in generalized abdomen, more marked in periumbilical epigastric right upper quadrant. Active bowel sounds. Extremity: No lower extremity edema. Neurologic: She is alert and oriented x3. Able to raise both upper and lower extremities above ground level. LABORATORY DATA: Suggestive of leukocytosis, macrocytosis, hypokalemia, kidney dysfunction on chronic kidney disease stage 3, hyperbilirubinemia as well as transaminitis. Troponin of 0.020 and lactic acidosis. No positive microbiological data. IMAGING: CT scan of the abdomen and pelvis is pending. Chest x-ray did not have any acute pathologies. She did have a breast implant. ASSESSMENT AND PLAN: 1. Presumed sepsis from gastrointestinal sources. Cholecystitis is a possibility. However, she denies known history of gallstone and abdominal ultrasound in 2017 was unremarkable. I will get CT scan of the abdomen and pelvis. I will follow up with serial lactate and start her intravenous fluid resuscitation. 2. Nausea, vomiting, abdominal pain. Start patient on intravenous Zofran, intravenous pantoprazole, intravenous fluids. Alcoholic gastritis versus peptic ulcer disease is also a possibility. 3. Chest pain with history of recent coronary artery disease in 2017 requiring stent. She is status post aspirin. I will keep her on her home beta blockers, aspirin, atorvastatin. Follow up serial troponins. 4. Alcohol use disorder. I will keep her on intravenous lorazepam. I will follow up with lipase and amylase to rule out pancreatitis, which could also be a possibility. 5. Anion gap acidosis likely due to lactic acidosis. Continue intravenous fluids. Follow up BMP tomorrow. Hypokalemia is being repleted. She does have colostomy, CKD stage 3. 6. Disposition. Continue to monitor patient inside the hospital. Plan of care discussed with the patient and her at bedside. Their questions have been answered. cc: Christos Pyle MD MTDD
[2018-11-21] MEDS ORDERED: TYLENOL PO PRN (10:36)
[2018-11-21] MEDS ORDERED: ATIVAN IV PRN (10:36)
[2018-11-21] MEDS ORDERED: KLOR-CON PO ONE (10:36)
[2018-11-21] MEDS: TOPROL XL PO SCH ×2 (11:12→14:50)
[2018-11-21] MEDS: LIPITOR PO SCH ×2 (11:12→14:50)
[2018-11-21] MEDS: PROTONIX IV SCH (11:12)
[2018-11-21] MEDS: MAGNESIUM GLUCONATE PO SCH ×2 (11:12→14:50)
[2018-11-21] MEDS: SODIUM CHLORIDE 0.9% INJ SCH (11:12)
[2018-11-21] MEDS: CELEXA PO SCH ×2 (11:12→14:48)
[2018-11-21] MEDS: ZOFRAN IV PRN ×3 (11:23→21:56)
[2018-11-21] MEDS: DILAUDID IV PRN ×3 (11:55→21:56)
[2018-11-21 12:46] LABS: CALCIUM 9.9 mg/dL (8.8-10.2); CREATININE 1.5 mg/dL (0.5-0.9); POTASSIUM 3.3 mmol/L (3.5-5.1)
--- NOTE | 2018-11-21 14:26 | Diag Imaging Result Doc PS360 ---
EXAM: CT ABDOMEN/PELVIS W/O CONTRAST INDICATION: Abdo pain, elevated LFTs, colostomy TECHNIQUE: This exam was performed using automated exposure control, adjustment of mA or kV according to patient size, and/or use of iterative reconstruction technique. COMPARISON: None. FINDINGS: There is mild subsegmental atelectasis and/or scarring at the lung bases. There is questionable very mild hepatic steatosis. The liver is essentially unremarkable, otherwise. The spleen appears normal. There is mild haziness around the pancreas. Although questionable on an unenhanced study, clinical correlation is recommended to exclude acute pancreatitis. There is no biliary dilatation. The gallbladder is unremarkable. The spleen and adrenal glands are unremarkable. There is mild nodularity involving the left adrenal gland that statistically most likely represents an underlying adenoma. There is a moderate-sized right renal cyst and a small left renal cyst that probably contain proteinaceous debris. The kidneys are unremarkable, otherwise. Urinary bladder is largely nondistended. The urinary bladder wall is mildly thickened. This is assumed to be due to underdistention. The reproductive tract is grossly unremarkable as imaged. There has been a prior colectomy. There is an ileostomy on the right. There is a moderate-sized parastomal hernia containing loops of bowel. A few of these bowel loops are mildly distended. There is nothing that would necessarily indicate obstruction, however. The remainder of the GI tract is grossly unremarkable as imaged with unenhanced CT. No free abdominal gas is identified. There is lumbar spondylosis. There is no evidence of acute osseous abnormality. IMPRESSION: 1.Subtle fat opacification around the pancreas that is nonspecific. Correlate clinically to exclude pancreatitis. 2.Questionable mild hepatic steatosis. 3.Moderate-sized right parastomal hernia at the ileostomy site. Although a few of the bowel loops are mildly distended. There is nothing that necessarily indicates obstruction. 4.Other incidental/nonacute findings detailed above. Electronically signed by Jose Guadalupe Jeronimo 11/21/2018 2:24 PM
[2018-11-21 14:50] LABS: URINE SOURCE CLEAN CATCH
[2018-11-21 14:52] LABS: BILIRUBIN URINE NEGATIVE (NEGATIVE); BLOOD URINE SMALL (NEGATIVE); COLOR YELLOW; GLUCOSE URINE NEGATIVE (NEGATIVE); KETONE URINE TRACE mg/dL (NEGATIVE); LEUKOCYTES URINE NEGATIVE (NEGATIVE); NITRITE URINE NEGATIVE (NEGATIVE); PROTEIN URINE 100 mg/dL (NEGATIVE); TURBIDITY URINE CLEAR (CLEAR); UR EPITHELIAL CELLS <10 /HPF (<10); URINE BACTERIA NEGATIVE /HPF; URINE RBC <10 /HPF (<10); URINE WBC <10 /HPF (<10); UROBILINOGEN URINE NORMAL (NORMAL)
[2018-11-21] MEDS ORDERED: LASIX IV ONE (16:06)
[2018-11-21] MEDS: LR 1,000 ML IV SCH (17:08)
--- NOTE | 2018-11-21 17:34 | CONSULTATION ---
DATE OF CONSULTATION: 11/21/2018 IMPRESSION: 1. Chest pain, atypical for myocardial ischemia. 2. Abnormal serum transaminases and mild elevation in lipase and bilirubin. Elevated central venous pressures suggested on exam and patient has significant alcohol use. Consider possible hepatic congestion or related to regular alcohol consumption. 3. Atherosclerotic coronary disease. Patient is status post coronary angioplasty/stenting of proximal left anterior descending coronary 75% eccentric tubular lesion with drug-eluting stent in August 2017. 4. History of previous pulmonary embolus in association with extended period of recovery after complications related to abdominal surgery. 5. Chronic pain disorder. 6. Chronic ongoing cigarette use at a rate of a half-pack cigarettes per day. RECOMMENDATIONS: 1. Gentle diuresis given suggestion of elevated central venous pressure. 2. Echocardiography. 3. Serial cardiac enzymes. 4. Consider possibility of other GI source of symptoms as well. 5. Ultimately patient would benefit from followup Lexiscan myocardial perfusion study. This was actually scheduled as an outpatient following her last visit with Dr. Odonnell in August of this year but she did not have study performed. If there is no objective evidence of ischemia during her present hospital stay, this could reasonably be pursued as an outpatient with Dr. Odonnell. HISTORY: This 78-year-old, white female with past history of atherosclerotic coronary disease chronic cigarette use, COPD, previous pulmonary embolus following complicated abdominal surgery, chronic pain, chronic cigarette use, and chronic alcohol use was admitted for evaluation of chest discomfort. She relates that for the last couple of days she has been having problems with nausea and vomiting. Last night she started experiencing some sharp pain. She points to the lower left parasternal region and left epigastric region. Discomfort seemed to extend around to the lower left chest region. Discomfort was characterized as sharp and accentuated with deep breaths. Episodes of chest discomfort might last 20 seconds at a time and then recur off and on overnight. She finally came to emergency room early this morning. Pain was relieved with narcotic analgesics. She relates some abdominal swelling but no swelling of the lower extremities. She has chronic exertional shortness of breath. She drinks 2 beers a day and 1 liquor drink daily. She gestures with her fingers to show how much alcohol she puts an for her liquor drink and it seems like it is probably around 2 ounces. She continues to smoke half pack of cigarettes per day. PAST MEDICAL HISTORY: 1. Atherosclerotic coronary disease as outlined above. 2. Hypertension. 3. Previous pulmonary embolism related to recovery following complicated abdominal surgery. 4. Chronic pain disorder. 5. Status post multiple abdominal surgeries for colon process which ultimately the patient required colon resection and has chronic colostomy. 6. Status post breast augmentation procedure. 7. Anxiety/depression. ALLERGIES: She is allergic or intolerant to morphine and sulfa. MEDICATIONS PRIOR TO ADMISSION: As listed. SOCIAL HISTORY: She previously smoked 1 pack of cigarettes per day for many years but has cut down to 1/2 pack of cigarettes per day. She drinks alcohol regularly and consumes two beers daily and 2 ounces of liquor daily. FAMILY HISTORY: Positive for cancer and ovarian cancer as well as stroke. REVIEW OF SYSTEMS: Pulmonary: Noncontributory beyond history of present illness. Gastrointestinal: Noncontributory beyond history of present illness. There has been no melena or bright red blood per rectum. There has been no hematemesis. Constitutional: Negative/noncontributory. Remainder of review of systems negative/noncontributory with 14 total systems reviewed. PHYSICAL EXAMINATION: General: This is a older white female in no distress. Vital signs: Blood pressure 169/80. Heart rate 102. Oxygen saturation 98%. HEENT: Extraocular movements appear intact. Mucous membranes moist. Neck: Supple. Jugular distention is faintly discern suggesting elevated central venous pressure. Chest: Clear to auscultation bilaterally with diminished breath sounds diffusely. Cardiac Exam: Reveals a regular rate and rhythm without appreciable murmur or gallop. Abdomen: Soft. There is some tenderness to palpation in the left epigastric region. There is no rebound tenderness. Extremities: Without edema. Neurologic: Reveals her to be alert and fully oriented. Speech is fluent. Moves all 4 extremities equally well. Skin: Warm and dry. Psych: Reveals her to be mildly anxious. PERTINENT DATA: A 12-lead electrocardiogram demonstrates sinus tachycardia and mild delay in precordial R-wave progression. Cannot exclude previous anterior infarct of undetermined age. LABORATORY DATA: Includes white blood cell count 14.58, hematocrit 40.8, hemoglobin 14.4, platelet count 186,000. Sodium 138, potassium 3.3, chloride 101, carbon dioxide 19, BUN 22, creatinine 1.5, glucose 172. Total bilirubin 1.69, AST 175, ALT 115 alkaline phosphatase states 166. Troponin T 0.018. Previous troponin T 0.020. Pro B natriuretic peptide level 1616. Lipase 181, amylase 77. cc: Papito Min MD
[2018-11-22] MEDS: ZOFRAN IV PRN ×3 (01:57→20:37)
[2018-11-22] MEDS: DILAUDID IV PRN ×2 (01:57→23:39)
[2018-11-22] MEDS ORDERED: PRILOSEC PO SCH (07:00)
[2018-11-22] MEDS: TOPROL XL PO SCH (09:39)
[2018-11-22] MEDS: MAGNESIUM GLUCONATE PO SCH (09:39)
[2018-11-22] MEDS: LIPITOR PO SCH (09:39)
[2018-11-22] MEDS: CELEXA PO SCH (09:39)
[2018-11-22] MEDS: ASPIRIN PO SCH (09:39)
[2018-11-22] MEDS: PROTONIX IV SCH (09:39)
[2018-11-22] MEDS: SODIUM CHLORIDE 0.9% INJ SCH (09:40)
[2018-11-22 11:55] LABS: CALCIUM 8.8 mg/dL (8.8-10.2); CREATININE 1.5 mg/dL (0.5-0.9); MAGNESIUM 1.4 mg/dL (1.5-2.7); POTASSIUM 3.3 mmol/L (3.5-5.1)
[2018-11-22 12:27] LABS: BASO# 0.01 X1000 (0.0-0.2); BASO% 0.1 % (0.0-0.8); EOS# 0.05 X1000 (0.0-0.7); EOS% 0.6 % (0.0-10.0); HEMATOCRIT 34.4 % (37.0-47.0); HEMOGLOBIN 11.9 g/dL (12.0-16.0); IMM GRAN# 0.02 X1000 (0.0-0.04); IMM GRAN% 0.2 % (0.0-0.5); LYMPH# 0.48 X1000 (1.2-3.4); LYMPH% 5.3 % (20.5-51.1); MCH 36.5 PG (27-31); MCHC 34.6 g/dL (33-37); MCV 105.5 FL (81-99); MONO# 0.69 X1000 (0.11-0.59); MONO% 7.6 % (1.7-9.3); NEUT# 7.81 X1000 (1.4-6.5); NEUT% 86.2 % (42.2-75.2); PLT 112 X1000 (130-400); RBC 3.26 XMIL (4.2-5.4); RDW 13.5 % (11.5-14.5); WBC 9.06 X1000 (4.8-10.8)
--- NOTE | 2018-11-22 13:37 | PROGRESS NOTE ---
DATE: 11/22/2018 INTERVAL HISTORY: No acute events overnight. She has not had any more vomiting episodes. She however is feeling nauseous. CT scan abdomen, pelvis had detected possibility of mild pancreatitis. Her repeat troponin was negative. Cardiology team had recommended conservative management. Her lactic acidosis had resolved. SUBJECTIVE: She is feeling slightly better than she did yesterday. She appears a little drowsy today. VITALS: Currently temperature 97.7 degrees, pulse 87, respiratory rate 20, her blood pressure is 150/80, she is saturating 98% on room air. PHYSICAL EXAMINATION: General: Does not appear in any acute distress. Oral cavity is moist. Air entry bilaterally equal. No wheeze, rhonchi, crackles. S1, S2 normal. Not tachycardic. No murmur, rub, or gallop. Abdomen: Soft. There is a midline depressed scar of laparotomy. Colostomy bag has greenish output. Her tenderness is decreased in generalized abdomen. Active bowel sounds. No lower extremity edema. She is alert and oriented x3. She is answering all questions appropriately though intermittently she is sleepy today. LABS: Suggestive of decreased WBC, decreased hemoglobin and decreased platelet count could be related to hemodilution. She does have hypokalemia which is currently being repleted. She continues to show chronic kidney disease stage 3 and hypomagnesemia which is also currently being repleted. IMAGING: Abdomen, pelvis CT had subtle fat opacification on pancreas which was nonspecific, questionable mild hepatic steatosis, moderate-sized right parastomal hernia although only few loops were distended so there was nothing to suggest obstruction. Cardiology team had recommended gentle diuresis, echocardiogram and ultimately need for Lexiscan outpatient. ASSESSMENT AND PLAN: 1. Presumed sepsis from gastrointestinal source likely I would say acute pancreatitis. There is no cholecystitis. There is no intestinal obstruction. Blood culture has not shown any growth so far. I will hold on adding any antibiotics at the moment. 2. Acute pancreatitis causing nausea, vomiting, abdominal pain. Continue intravenous fluids at gentle rate. Start patient on diet. Continue intravenous Zofran. I will also keep her on intravenous pantoprazole for suspected alcoholic gastritis versus peptic ulcer disease. If this does not get better I would consider consulting Gastroenterology. 3. Chest pain underneath the breast with history of coronary artery disease with stent in August 2017 requiring stent. Her 2 troponins were largely unremarkable. I will continue her home beta apple, aspirin, atorvastatin. I will also replete her magnesium and potassium. 4. Alcohol abuse and alcohol use disorder. Continue intravenous lorazepam. Start patient on diazepam. 5. She does have history of chronic kidney disease stage 3, colon rupture requiring colostomy in since 2014, her anion gap massive metabolic acidosis due to lactic acidemia is improving. 6. Disposition. I will continue to monitor patient on medical floor. Plan of care discussed with her. Her questions have been answered. cc: Christos Pyle MD
[2018-11-22] MEDS: ZYRTEC PO SCH (15:28)
[2018-11-22] MEDS: MAGNESIUM SULFATE 2 GM/S.W.I. 2 GM/50 ML IVPB IV SCH ×2 (15:28→17:45)
[2018-11-22] MEDS: LR 1,000 ML IV SCH (15:28)
[2018-11-22] MEDS: VALIUM PO SCH ×2 (15:29→20:31)
[2018-11-22] MEDS: POTASSIUM CHLORIDE 20 MEQ/SWI 20 MEQ/100 ML IVPB IV SCH ×2 (16:09→17:45)
[2018-11-22] MEDS: LOVENOX SUBQ SCH (16:14)
--- NOTE | 2018-11-22 17:28 | ECHO REPORT ---
ORDER DATE: 11/21/2018 INTERPRETING PHYSICIAN: Nahid Odonnell MD. ECHOCARDIOGRAPHIC MEASUREMENTS: 1. Interventricular septum 1.1. 2. Left ventricular posterior wall 1.1. 3. Diastolic diameter 4.4 4. Left atrium 3.1. 5. Aorta 2.1 cm. SUMMARY OF THE 2-DIMENSIONAL IMAGIN. Technically suboptimal study. 2. Aortic valve leaflets are trileaflet. 3. Pulmonic valve is normal. 4. Mitral valve is normal. 5. Tricuspid valve is normal. 6. There is mild mitral regurgitation. 7. Mild tricuspid regurgitation. 8. Peak velocity across the tricuspid valve is 2.3 m/sec. Pulmonary artery systolic pressure of 32 mmHg. 9. Normal left ventricular cavity size. Estimated ejection fraction of 65 to 70 percent. 10. There is mild diastolic dysfunction. cc: MD Papito Epps MD
[2018-11-23] MEDS: DILAUDID IV PRN ×3 (03:43→19:12)
[2018-11-23 07:14] LABS: BASO# 0.02 X1000 (0.0-0.2); BASO% 0.2 % (0.0-0.8); LYMPH% 6.7 % (20.5-51.1); MCH 36.6 PG (27-31); RDW 13.8 % (11.5-14.5)
[2018-11-23 07:15] LABS: EOS# 0.04 X1000 (0.0-0.7); EOS% 0.4 % (0.0-10.0); HEMATOCRIT 37.4 % (37.0-47.0); HEMOGLOBIN 12.6 g/dL (12.0-16.0); IMM GRAN# 0.02 X1000 (0.0-0.04); IMM GRAN% 0.2 % (0.0-0.5); MCHC 33.7 g/dL (33-37); MCV 108.7 FL (81-99); MONO# 0.61 X1000 (0.11-0.59); MONO% 6.8 % (1.7-9.3); MPV 11.5 FL (7.4-10.4); NEUT# 7.68 X1000 (1.4-6.5); NEUT% 85.7 % (42.2-75.2); PLT 90 X1000 (130-400); RBC 3.44 XMIL (4.2-5.4); WBC 8.97 X1000 (4.8-10.8)
[2018-11-23 07:44] LABS: ALB/GLOB RATIO 1.2; ALBUMIN 3.2 g/dL (3.5-5.0); CALCIUM 9.3 mg/dL (8.8-10.2); CREATININE 1.2 mg/dL (0.5-0.9); MAGNESIUM 2.2 mg/dL (1.5-2.7); POTASSIUM 3.7 mmol/L (3.5-5.1); TOTAL BILIRUBIN 1.22 mg/dL (0.20-1.00); TOTAL PROTEIN 5.9 g/dL (6.3-8.3)
[2018-11-23 08:55] LABS: BANDS 8 % (0-1); LYMPHS 6 % (21-51); MONO 2 % (1-9); SEGS 84 % (42-75)
[2018-11-23 08:56] LABS: HYPOCHROM 1+
[2018-11-23] MEDS: VALIUM PO SCH ×3 (08:58→20:50)
[2018-11-23] MEDS: MAGNESIUM GLUCONATE PO SCH ×2 (08:58→09:09)
[2018-11-23] MEDS: ASPIRIN PO SCH ×2 (08:58→09:08)
[2018-11-23] MEDS: ZYRTEC PO SCH (08:58)
[2018-11-23] MEDS: PROTONIX IV SCH (08:58)
[2018-11-23] MEDS: LIPITOR PO SCH ×2 (08:58→09:08)
[2018-11-23] MEDS: TOPROL XL PO SCH ×3 (08:59→13:32)
[2018-11-23] MEDS: CELEXA PO SCH ×2 (08:59→09:08)
--- NOTE | 2018-11-23 14:12 | PROGRESS NOTE ---
DATE: 11/23/2018 INTERVAL HISTORY: No acute events overnight. She states she has been drinking a bit of liquids. Her abdominal pain is better but is not completely resolved. She was a little nauseous in the morning time. She denies any alcohol withdrawal related symptoms. VITALS: Temperature 98.9 degrees, pulse 118, respiratory 18, blood pressure 140/75, she is saturating 96% room air. PHYSICAL EXAMINATION: General: Morbidly obese not in acute distress not tremulous. No pallor, cyanosis, clubbing, or icterus. Air entry bilateral equal. No wheeze, rhonchi, crackles. S1, S2 normal, tachycardic. No murmur, rub, or gallop. Abdomen: Obese, soft, midline deep breast scar of multiple laparotomies, there is a colostomy bag with minimal output. Her tenderness is decreased in generalized abdomen. She does have active bowel sounds. No lower extremity edema. She is alert oriented x3. She is answering all questions appropriately. LABS: Suggestive of no leukocytosis, normal hemoglobin, macrocytosis, thrombocytopenia. She does have chronic kidney disease stage 3 which is currently at baseline. Her acute kidney dysfunction has resolved. Her magnesium, hypomagnesemia, hypokalemia has resolved. Her liver function tests are improving. No positive microbiological data. No new imaging data. Echocardiogram had suggested ejection fraction of 65 to 70 percent and mild diastolic dysfunction. ASSESSMENT AND PLAN: 1. Acute pancreatitis and possibly peptic ulcer disease on presentation related to alcohol abuse. Her vomiting has resolved, abdominal pain is improving. She is intermittently nauseous. Blood culture drawn for presumed sepsis have not shown any growth. I will continue soft diet for now and advance it as tolerated. Will consult Gastroenterology tomorrow morning if she continues to have nausea and abdominal pain. Continue intravenous pantoprazole, intravenous fluids, intravenous Zofran as needed for nausea and vomiting. Noticeably she did have erosive gastritis, gastric antral ulcer as well as duodenal ulcer in 2017 however she did not follow up with Gastroenterology at that time. She is not listed to be taking any antacid medications. 2. Chest pain below breasts on presentation with history of coronary artery disease and stent in August 2017 her troponins were unremarkable. Continue home atorvastatin, metoprolol. She should have outpatient close cardiology followup. I will keep her on aspirin 81 mg daily. Her echocardiogram had normal ejection fraction with mild diastolic dysfunction. 3. Alcohol abuse and alcohol use disorder. Continue intravenous lorazepam as needed Valium. She is not showing any signs of withdrawal at the moment. 4. Others. She has history of chronic kidney disease stage 3. 5. Colon rupture requiring multiple laparotomies and colostomy since 2014. 6. Lactic acidosis on presentation has resolved. 7. Disposition. I will continue to monitor patient inside the hospital for persistent nausea. Plan of care discussed with her, her questions have been answered. cc: Christos Pyle MD MTDD
[2018-11-23] MEDS: LR 1,000 ML IV SCH (17:32)
[2018-11-23] MEDS: LOVENOX SUBQ SCH (17:32)
[2018-11-24] MEDS: LR 1,000 ML IV SCH ×2 (01:00→23:22)
[2018-11-24] MEDS: DILAUDID IV PRN ×2 (04:45→10:31)
[2018-11-24] MEDS: LIPITOR PO SCH (08:44)
[2018-11-24] MEDS: TOPROL XL PO SCH (08:44)
[2018-11-24] MEDS: ZYRTEC PO SCH (08:44)
[2018-11-24] MEDS: ASPIRIN PO SCH (08:45)
[2018-11-24] MEDS: MAGNESIUM GLUCONATE PO SCH (08:45)
[2018-11-24] MEDS: VALIUM PO SCH ×2 (08:45→21:13)
[2018-11-24] MEDS: CELEXA PO SCH (08:45)
[2018-11-24] MEDS: PROTONIX IV SCH (08:49)
[2018-11-24] MEDS: SODIUM CHLORIDE 0.9% INJ SCH (08:50)
[2018-11-24] MEDS: LOVENOX SUBQ SCH (17:09)
--- NOTE | 2018-11-24 17:09 | PROGRESS NOTE ---
DATE: 11/24/2018 INTERVAL HISTORY: No acute events overnight. She has been tolerating mechanical soft diet well. She is feeling much better. No nausea or vomiting. Abdominal pain is better. VITAL SIGNS: Temperature 98 degrees, pulse 84, respiratory 18, blood pressure 102/52, saturating 94% on room air. PHYSICAL EXAMINATION: General: Morbidly obese not in acute distress. HEENT: Oral cavity is moist. No pallor, cyanosis, clubbing, or icterus. Lungs: Air entry bilaterally equal. No wheeze, rhonchi, crackles. Cardiovascular: S1, S2 normal. Not tachycardic. No murmur or gallop. Abdomen: Obese, soft. Midline scar from multiple laparotomies, There is a right quadrant colostomy with yellowish output. There is no abdominal tenderness. She does have active bowel sounds. Extremities: No lower extremity edema. Neurologic: She is alert and oriented x3. LABORATORY DATA: Suggestive of stable hemoglobin. She does have thrombocytopenia. Her electrolytes are normal. She does show improvement in creatinine, though she does have chronic kidney disease stage 3. Her liver function tests are improving. MICROBIOLOGY: No new data. IMAGING: Echocardiogram had suggested ejection fraction of 65 to 70 percent and mild diastolic dysfunction. ASSESSMENT AND PLAN: 1. Acute pancreatitis and possibly peptic ulcer disease related to alcohol abuse. Her vomiting, nausea and abdominal pain is improving. Continue mechanical soft diet, intravenous pantoprazole, intravenous Zofran as needed. In 2006, she did have erosive gastritis, gastric antral ulcer, duodenal ulcer, esophageal candidiasis. I will monitor her for another 24 hours as she is complaining of some dysphagia. If she is able to tolerate soft diet well, EGD could be deferred until outpatient. I will appreciate GI recommendations. 2. Chest pain on presentation with history of coronary artery disease and stent in August 2017. Her troponins were unremarkable. Continue home atorvastatin, metoprolol and keep her on aspirin. Her echocardiogram was unremarkable. I just had a discussion with Cardiology team and they are planning a stress test outpatient in next couple of weeks time. 3. Others. She does have history of chronic kidney disease stage 3 and acute kidney injury on presentation which has resolved; she had a colon rupture requiring multiple laparotomies and colostomy since 2014; her lactic acidosis on presentation has resolved. DISPOSITION: If the patient is able to tolerate softer diet, without recurrence of symptoms, she will be discharged home in next 24 hours. However, if her dysphagia, nausea, or vomiting or abdominal pain gets worse then she may need inpatient EGD. Plan of care discussed with the patient. All questions have been answered. cc: Christos Pyle MD
[2018-11-24] MEDS: ULTRAM PO PRN (21:06)
--- NOTE | 2018-11-24 21:21 | GASTROENTEROLOGY CONSULTATION ---
DATE: 11/24/2018 REASON FOR CONSULTATION: GERD, dysphagia, chest pain. HISTORY OF PRESENT ILLNESS: This is a 78-year-old female who came in to the hospital on 11/21/2018 with complaints of substernal chest pain radiating to the left breast and shoulder. She has had a cardiac evaluation. She has also had a cardiac workup in progress by Dr. Odonnell. The patient has also complained of some dysphagia and some episodes of nausea and vomiting since admission. Today, patient states her symptoms have improved. She has had an EGD in [address] Judy Ellington. Indications for chest pain, dysphagia and GERD. Findings showed Vilma, esophagitis, a Schatzki's ring that was not dilated, hiatal hernia, gastritis, gastric ulcers and duodenal ulcer. The patient did not follow up in the office after that hospitalization and procedure. Patient does have a history of alcohol use. PAST MEDICAL HISTORY: Coronary artery disease, hypertension, pulmonary embolism, chronic pain, methicillin resistant Staph aureus. PAST SURGICAL HISTORY: Colostomy, heart stent, breast implants. ALLERGIES: Morphine causing confusion, sulfonamide medications causing vomiting and diarrhea. HOME MEDICATIONS: Lipitor 80 mg daily, Celexa 1 tablet daily, magnesium 250 mg daily, Toprol-XL 200 mg daily. SOCIAL HISTORY: Lives with family. Smokes 3/4 of a pack of cigarettes a day. Alcohol use daily. PHYSICAL EXAMINATION: Vital signs: Temperature 98.1 degrees, pulse 86, respirations 18, blood pressure 104/48. Generally: Patient is awake, alert, in no acute distress. Cardiovascular: Regular rate and rhythm. Abdomen: Obese, soft. Colostomy intact, nontender. Extremities: No lower extremity edema noted. Neurologic: Cranial nerves 2-12 grossly intact. Patient is awake, alert, oriented to person, place, and time. DIAGNOSTIC RESULTS AND LABORATORY: Hematology 8.97, hemoglobin 12.6, hematocrit 37.4, MCV 108.7, platelet 90,000. Chemistry: Sodium 132, potassium 3.7, chloride 98, CO2 19, BUN 11, creatinine 1.2, glucose 98, calcium 9.3, magnesium 2.2. Total bilirubin 1.22. AST 48, ALT 46, alkaline phosphatase 114. Amylase 77, lipase 181 on 11/21/2018. ASSESSMENT AND PLAN: 1. Recent acute pancreatitis. The abdominal pain has currently resolved. Patient is tolerating her diet. 2. Chest pain. Patient has been seen by cardiology. Planning on further workup as an outpatient. 3. Dysphagia, nausea and vomiting. Patient had esophagogastroduodenoscopy in 2017 showing Schatzki's ring, Vilma, hiatal hernia, gastritis, gastric ulcers and duodenal ulcer by Dr. Ellington. Continue current medications, proton pump inhibitor. Would recommend she follow up with us as an outpatient for esophagogastroduodenoscopy evaluation. Further plans to be made according to her progress. The patient was also seen by Dr. Pollack. Thank you for this consultation. Dictated by DARYN Rosas for Anand Pollack MD cc: DARYN Curran MD
[2018-11-25 08:04] LABS: MAGNESIUM 2.1 mg/dL (1.5-2.7); PHOSPHORUS 1.8 mg/dL (2.7-4.5)
[2018-11-25 08:21] LABS: ALB/GLOB RATIO 0.8; ALBUMIN 2.6 g/dL (3.5-5.0); CALCIUM 9.1 mg/dL (8.8-10.2); CREATININE 1.1 mg/dL (0.5-0.9); POTASSIUM 3.3 mmol/L (3.5-5.1); TOTAL BILIRUBIN 1.06 mg/dL (0.20-1.00)
[2018-11-25 08:55] LABS: HEMATOCRIT 31.4 % (37.0-47.0); HEMOGLOBIN 10.4 g/dL (12.0-16.0); MCH 35.6 PG (27-31); MCHC 33.1 g/dL (33-37); MCV 107.5 FL (81-99); RBC 2.92 XMIL (4.2-5.4); RDW 13.1 % (11.5-14.5); WBC 10.01 X1000 (4.8-10.8)
[2018-11-25] MEDS ORDERED: POTASSIUM PHOSPHATE 50 MMOL in NS 250 ML IV ONE (09:49)
[2018-11-25] MEDS: MAGNESIUM GLUCONATE PO SCH (10:06)
[2018-11-25] MEDS: ASPIRIN PO SCH (10:06)
[2018-11-25] MEDS: VALIUM PO SCH (10:07)
[2018-11-25] MEDS: ZYRTEC PO SCH (10:07)
[2018-11-25] MEDS: PROTONIX IV SCH (10:07)
[2018-11-25] MEDS: CELEXA PO SCH (10:07)
[2018-11-25] MEDS: LIPITOR PO SCH (10:07)
[2018-11-25] MEDS: TOPROL XL PO SCH (10:09)
[2018-11-25 11:58] VITALS: BP 132/71
[2018-11-25] MEDS ORDERED: NEUTRA-PHOS PO ONE (12:13)
[2018-11-25] MEDS ORDERED: KLOR-CON PO ONE (12:13)
--- NOTE | 2018-11-25 12:33 | Diag Imaging Result Doc PS360 ---
CT THORAX W/O CONTRAST - 11/25/2018 INDICATION: lung nodules COMPARISON: Chest x-ray 11/21/2018 FINDINGS: Stable breast implants. Heart and great vessels are normal. There is some scattered coronary artery disease. The thyroid gland is very heterogeneous with multiple cysts. The right lobe is slightly enlarged in the left lobe is very atrophic. There are trace bilateral pleural effusions. Small calcified granuloma in the right lower lobe. No nodules or infiltrates. Bony structures are intact. IMPRESSION: Trace bilateral pleural effusions. No pulmonary nodules. This exam was performed using automated exposure control, adjustment of mA or kV according to patient size, and/or use of iterative reconstruction technique Electronically signed by Michael Mistry 11/25/2018 12:30 PM
[2018-11-25] MEDS: ULTRAM PO PRN (12:45)
--- NOTE | 2018-11-25 13:35 | GASTROENTEROLOGY PROGRESS NOTE ---
DATE: 11/25/2018 SUBJECTIVE: Patient states she is sleepy today. Otherwise she tolerated her diet. She does report a little abdominal pain after eating this morning's breakfast. No reported nausea or vomiting. She has had bowel movements daily. OBJECTIVE: Vital Signs: Temperature 97.8 degrees, pulse 73, blood pressure 143/65. General: Patient is awake, alert, in no acute distress. LABORATORY: Hematology: WBC 10.01, hemoglobin 10.4, hematocrit 31.4, MCV 107.5. Chemistry: Sodium 133, potassium 3.3, chloride 98, CO2 27, BUN 9, creatinine 1.1, glucose 120, calcium 9.1, total bilirubin 1.06, AST 28, ALT 29, alkaline phosphatase 173. ASSESSMENT AND PLAN: 1. Acute pancreatitis has improved. She is tolerating her diet. She has had some abdominal pain after eating. Continue current medications. 2. Chest pain. Patient has been seen by Cardiology. 3. Dysphagia, GERD. Recommend to continue PPI. Recommend patient follow up with us as an outpatient and if needed EGD can be planned as an outpatient. I have discussed this case with Dr. Pollack. Dictated by DARYN Rosas for Anand Pollack MD cc: DARYN Curran MD
--- NOTE | 2018-12-03 15:13 | DISCHARGE SUMMARY ---
ADMISSION DATE: 11/23/2018 DISCHARGE DATE: 11/25/2018 FINAL DISCHARGE DIAGNOSES: 1. Acute pancreatitis. 2. Chest pain. 3. Chronic acute kidney injury on chronic kidney disease stage 3. 4. Dysphagia. 5. Hypertension. 6. Situational depression. CONSULTATIONS: 1. Cardiology consultation with Dr. Min. 2. GI consultation with Dr. Pollack. IMAGIN. CT of the abdomen and pelvis which revealed a moderate-size right parastomal hernia at the ileostomy site. A subtle fat opacification around the pancreatitis. 2. Echocardiogram which revealed an ejection fraction of 65 to 70 percent, mild diastolic dysfunction. 3. Chest CT which revealed trace bilateral pleural effusions. HOSPITAL COURSE: Ms. Pedersen is a 78-year-old female with a history of multiple medical problems who initially presented to the ER with a chief complaint of chest pain as well as associated nausea and vomiting. On admission, the patient was noted to have elevated LFTs as well as a lipase of 181. The patient was admitted to the hospitalist service. GI was consulted as well as Cardiology. It was thought that the patient was suffering from pancreatitis. She was treated with bowel rest, IV fluids and antiemetics and pain medication. The patient was also seen by the Cardiology Service, who recommended an outpatient stress test. The patient complained of dysphagia and was started on proton pump inhibitor therapy. It was recommended by Gastroenterology that the patient follow up as outpatient for further discussion of her dysphagia. The patient continued to improve clinically and was ultimately cleared for discharge on 11/25/2018. DISCHARGE MEDICATIONS: 1. Omeprazole 40 mg p.o. daily. 2. Ultram 25 mg oral every 6 hours p.r.n. for pain. 3. Lipitor 80 mg p.o. at bedtime. 4. Toprol-XL 200 mg oral daily. 5. Celexa 40 mg p.o. daily. 6. Magnesium 250 mg oral daily. DISCHARGE DIET: Low-fat diet. ACTIVITY: As tolerated. FOLLOWUP INSTRUCTIONS: The patient will need to follow up with Dr. Min as scheduled by his clinic. The patient will need to follow up with Dr. Pollack as scheduled by his clinic as well. cc: Alma Palacio MD
== END 2018-11-25 14:18 | disposition home health service (06) | DRG 439 ==
LOC: ED 04:57 → 3N 04:57 → SUATTDRO 11-23 10:28
PROVIDERS: ATTEND Internal Medicine